=== PATIENT | male | born 1960 | race Caucasian/White ===

== ENCOUNTER 2024-05-31 11:06 | Inpatient (IN) | payer MEDICARE, MEDICAID, SELFPAY ==
[2024-05-31] VITALS (13 sets, daily range): BP systolic 108–140; BP diastolic 62–85; PULSE 74–155; RESP 18–24; TEMP 36.6–36.9; O2SAT 87–96; BMI 33.5; BMI 34.2
--- NOTE | 2024-05-31 11:43 | XR_ITS ---
PROCEDURE INFORMATION: Exam: XR Chest Exam date and time: 05/31/2024 12:00 PM Age: 64 years old Clinical indication: Cough and shortness of breath; Additional info: SOA, cough TECHNIQUE: Imaging protocol: Radiologic exam of the chest. Views: 1 view. COMPARISON: CT ANGIO CHEST 09/06/2019 4:46 PM FINDINGS: Lungs: Hazy opacity in right lower lobe suspicious for developing pneumonia. Upper lobe emphysema. Pleural spaces: Small right pleural effusion Heart/Mediastinum: Unremarkable. No cardiomegaly. Bones/joints: Unremarkable. IMPRESSION: Hazy opacity in right lower lobe suspicious for developing pneumonia.
[2024-05-31 11:48] LABS: VBG Base Excess 4.9 mmol/L (-2.4-2.3); VBG HCO3 30.5 mmol/L (23-30); VBG Oxygen Saturation 70.9 % (50-70); VBG PCO2 57.1 mmol/L (35-51); VBG PH 7.35 mmol/L (7.31-7.41); VBG PO2 37.4 mmol/L (28-40); VBG Total CO2 32.3 mmol/L (23-27)
[2024-05-31 11:51] LABS: Albumin Level 3.8 g/dl (3.5-5.0); Basophils # 0.1 K/mm3 (0-0.2); Basophils % 0.5 % (0.1-2.0); Chloride 103 mmol/L (98-107); Eosinophils # 0.1 K/mm3 (0.0-0.4); Eosinophils % 0.5 % (0.1-12.0); Hematocrit 54.8 % (42.0-52.0); Hemoglobin 17.2 g/dL (14.1-18.0); Lymphocytes # 1.3 K/mm3 (0.7-4.5); Lymphocytes % 10.9 % (10-50); Mean Corpuscular HGB Conc 31.5 g/dL (31.8-35.4); Mean Corpuscular Hemoglobin 28.4 pg (27.0-31.2); Mean Corpuscular Volume 90.4 fl (80-94); Mean Platelet Volume 8.5 fl (7.4-10.4); Monocytes # 0.7 K/mm3 (0.1-1.0); Platelet Count 265 K/mm3 (142-424); Red Blood Count 6.06 M/mm3 (4.60-6.20); Sodium 141 mmol/L (136-145); White Blood Count 12.2 K/mm3 (4.8-10.8)
--- NOTE | 2024-05-31 11:51 | ECG_ITS ---
APPROVED REPORT Exam: Resting ECG HR:131 bpm ECG Measurements Heart Rate 131 AXES QRSd 150 QRS 152 QT 332 T -4 QTc 409 Conclusion ATRIAL FIBRILLATION WITH RAPID VENTRICULAR RESPONSE RIGHT AXIS DEVIATION [QRS AXIS > 100] RIGHT BUNDLE BRANCH BLOCK [120+ ms QRS DURATION, UPRIGHT V1, 40+ ms S IN I/aVL/V4/V5/V6] ABNORMAL ECG UNCONFIRMED REPORT Electronically signed by : Arron Lao MD 06/01/2024 08:36:16
[2024-05-31 11:52] LABS: Potassium 4.3 mmoL/L (3.5-5.1)
[2024-05-31 11:53] LABS: Lactate Venous 2.3 mmol/L (0.4-2.0)
[2024-05-31 11:54] LABS: Alanine Aminotransferase 101 U/L (12-78); Albumin/Globulin Ratio 1.2 (1.1-1.8); Alkaline Phosphatase 70 U/L (38-126); Anion Gap 10.3 mEq/L (5-15); Aspartate Amino Transferase 88 U/L (17-59); Bilirubin,Total 1.2 mg/dl (0.2-1.3); Blood Urea Nitrogen 29 mg/dl (9-20); Carbon Dioxide 32 mmol/L (22.0-30.0); Creatinine Clearance Estimated 99 mL/min (50-200); Estimated Glomerular Filt Rate 67 ml/min (>60); GFR (African American) 81 ML/MIN (>60); Globulin 3.2 g/dL (1.3-3.2)
[2024-05-31 11:55] LABS: Calcium 9.3 mg/dl (8.4-10.2); Glucose 113 mg/dl (74-100)
[2024-05-31] MEDS: METHYLPREDNISOLONE SOD SUCC 125MG VIAL 125 MG IV (12:03)
[2024-05-31 12:04] LABS: NT Pro Brain Natriuretic Pep. 15200 pg/mL (0-125)
[2024-05-31] MEDS: IPRATROPIUM/ALBUTEROL 3 ML NEB 9 ML IH (12:04)
--- NOTE | 2024-05-31 12:05 | PC.NURSE ---
XR AT BEDSIDE
--- NOTE | 2024-05-31 12:05 | PC.NURSE ---
Rad in room for portable x-ray
[2024-05-31 12:07] LABS: Troponin I 0.07 ng/ml (0.00-0.034)
[2024-05-31 12:26] LABS: Activated Partial Thrombo Time 25.9 seconds (22.8-30.6); INR 1.37 (0.9-1.1); Prothrombin Time 14.9 seconds (10.1-12.5)
--- NOTE | 2024-05-31 12:27 | ED_ITS ---
Discharge Plan Disposition Patient Disposition: Admitted Referrals Follow up/Referrals: Vita Grissom MD [Primary Care Provider] - See instructions Clinical Impressions Clinical Impression: COPD exacerbation, New onset of congestive heart failure, Atrial fibrillation, new onset, Acute hypoxemic respiratory failure Print Language Print Language: [place]ijani Discharge ED Provider: Aftab Jyoner HPI General Chief Complaint: Shortness of Breath/Dyspnea Stated Complaint: SOB x 1 week, weakness Time Seen by Provider: 05/31/24 11:15 Mode of Arrival: Wheelchair Source of Information: Patient Limitations: No Limitations Description of Symptoms (Recalled from ER Triage Doc. by RN): Patient reports increased shortness of breath over the past 3-4 days. History of Present Illness HPI narrative: Please note that above description of symptoms, in this electronic medical record under categorization of recalled from ER triage doctor by RN are reflective of an initial nursing assessment, however, is not reflective of my full history and physical exam that was personally taken and clarified. Consequentially, this preceding description of symptoms, which may include the patient's categorized chief complaint in the EMR, do not reflect my personal clinical impression, and the ultimate description of history of present illness and patient stated complaints should be deferred to this section of the note. Unless stated otherwise or congruent with this section of the note, additional signs, symptoms, or incongruence should be interpreted as inaccurate with my clinical impression. Related Data Allergies Allergy/AdvReac Type Severity Reaction Status Date / Time No Known Allergies Allergy Unverified 05/31/24 12:35 [facility] Disclaimer: The information contained in this section may have been updated after the patient was seen, as this information can be updated by other users. Social History Smoking Status: Current every day smoker alcohol intake: never current occupational status: unemployed Travel in the last 8 weeks: None Other Medical History Have you received the Flu Vaccine for this season: No Have you received the Pneumonia Vaccine: No ROS Obtained: Yes All systems reviewed & no additional complaints except as documented Physical Exam General General appearance: alert, in no apparent distress and other (Chronically ill) Neck Neck exam: Present trachea midline Chest Chest inspection: Present normal inspection and symmetric chest wall rise Respiratory Respiratory exam: Present wheezes, prolonged expiratory phase and other; Absent respiratory distress, stridor or accessory muscle use Cardiovascular Cardiovascular exam: Present regular rate, normal rhythm and other (Pulses equal and symmetric in upper and lower extremities) Extremities Exam Extremities exam: Absent edema Neurological Exam Neurological exam: Present alert, oriented X3 and CN II-XII intact Skin Skin exam: Present warm and dry; Absent cyanosis, diaphoresis or pallor HEART Score HEART Score HEART Score assessment performed?: Yes History (anamnesis): Slightly suspicious ECG: Non-specific disturbance Age: >65 years Risk factors: 1-2 risk factors Troponin: 1-3x normal limit HEART Score: 5 Critical Care Critical Care Time Critical Care Time: Yes (Pulm) Attestation: On 05/31/24, the high probability of a clinically significant, sudden or life threatening deterioration of the following system(s) required my full and direct attention, intervention and personal management. The time I documented below is in addition to time spent performing reported procedures but includes the following listed in this critical care notation. Total Time Total Critical Care Time: 35 Medical Decision Making Medical Records Medical records reviewed: Yes I reviewed the patient's medical records. Dat Inquiry Pt receiving controlled substance: No Dat was queried for this patient: No Vital Signs Vital Signs: 05/31/24 11:07 Temperature 98.2 F Temperature Source Oral Pulse Rate [Radial] 74 Respiratory Rate 22 Blood Pressure [Right Arm] 116/81 Blood Pressure Mean [Right Arm] 92 Blood Pressure Source [Right Arm] Automatic Cuff Blood Pressure Position [Right Arm] Sitting 02 Sat by Pulse Oximetry 87 L Oxygen Delivery Method Room Air Lab Data Labs: Lab Results 05/31/24 11:27: WBC 12.2 H, RBC 6.06, Hgb 17.2, Hct 54.8 H, MCV 90.4, MCH 28.4, MCHC 31.5 L, RDW 15.0, Plt Count 265, MPV 8.5, Neut % (Auto) 82.0 H, Lymph % (Auto) 10.9, [place] % (Auto) 6.0, Eos % (Auto) 0.5, Baso % (Auto) 0.5, Neut # (Auto) 10.0 H, Lymph # (Auto) 1.3, [place] # (Auto) 0.7, Eos # (Auto) 0.1, Baso # (Auto) 0.1, PT 14.9 H, INR 1.37 H, APTT 25.9, Sodium 141, Potassium 4.3, Chloride 103, Carbon Dioxide 32 H, Anion Gap 10.3, BUN 29 H, Creatinine 1.10, Estimated Creat Clear 99, Estimated GFR 67, Est GFR ( Amer) 81, Glucose 113 H, Calcium 9.3, Total Bilirubin 1.2, AST 88 H, ALT 101 H, Alkaline Phosphatase 70, Troponin I 0.07 H, NT-Pro-B Natriuret Pep 79592 H, Total Protein 7.0, Albumin 3.8, Globulin 3.2, Albumin/Globulin Ratio 1.2, Procalcitonin 0.121 05/31/24 11:44: VBG pH 7.35, VBG pCO2 57.1 H, VBG pO2 37.4, VBG HCO3 30.5 H, VBG Total CO2 32.3 H, VBG O2 Saturation 70.9 H, VBG Base Excess 4.9 H, VBG Lactic Acid 2.3 H 05/31/24 11:27 05/31/24 11:27 Response Orders (Tests/Meds): ED MEDICATIONS Generic Name Dose Route Start Last Admin Trade Name Freq PRN Reason Stop Dose Admin Acetaminophen 650 mg 05/31/24 13:03 Acetaminophen 325mg Tab PO 06/30/24 13:02 Q4HP PRN Fever or Mild Pain (1-3) Enoxaparin Sodium 105 mg 05/31/24 12:45 05/31/24 12:41 Enoxaparin 120mg/0.8ml Syringe SUBCUT 06/30/24 12:44 105 mg Q12H LUDIVINA Administration Enoxaparin Sodium 40 mg 06/01/24 09:00 Enoxaparin 40mg/0.4ml Syringe SUBCUT 07/01/24 08:59 DAILY LUDIVINA Ondansetron HCl 4 mg 05/31/24 13:03 Ondansetron 4mg/2ml Vial IV 06/30/24 13:02 Q8HP PRN Nausea Discontinued Medications Generic Name Dose Route Start Last Admin Trade Name Freq PRN Reason Stop Dose Admin Albuterol/Ipratropium 9 ml 05/31/24 11:43 05/31/24 12:04 Ipratropium/Albuterol 3 Ml Neb IH 05/31/24 11:44 9 ml ONCE ONE Administration Furosemide 80 mg 05/31/24 12:31 05/31/24 12:40 Furosemide 40mg/4ml Vial IV 05/31/24 12:32 80 mg ONCE ONE Administration Ceftriaxone Sodium 2 gm/ 100 mls @ 200 mls/hr 05/31/24 12:32 05/31/24 12:40 Sodium Chloride IV 05/31/24 13:01 200 mls/hr ONCE ONE Administration Methylprednisolone Sodium Succinate 125 mg 05/31/24 11:43 05/31/24 12:03 Methylprednisolone Sod Succ 125mg Vial IV 05/31/24 11:44 125 mg ONCE ONE Administration Metoprolol Tartrate 5 mg 05/31/24 12:57 05/31/24 13:11 Metoprolol Tartrate 5mg/5ml Vial IV 05/31/24 12:58 5 mg ONCE ONE Administration ORDERS Category Date Time Status Cardiology Consult [Consult to Cardiology] [CONS] Cons 05/31/24 13:09 Active Routine XR chest portable Stat Exams 05/31/24 11:43 Taken Complete Blood Count Auto Diff [facility] Lab 06/01/24 06:00 Ordered Complete Blood Count Auto Diff [facility] Lab 06/02/24 06:00 Ordered Complete Blood Count Auto Diff [facility] Lab 06/03/24 06:00 Ordered Complete Blood Count Auto Diff [facility] Lab 06/04/24 06:00 Ordered Complete Blood Count Auto Diff [facility] Lab 06/05/24 06:00 Ordered Complete Blood Count Auto Diff Stat Lab 05/31/24 11:27 Completed Comprehensive Metabolic Panel [facility] Lab 06/01/24 06:00 Ordered Comprehensive Metabolic Panel [facility] Lab 06/02/24 06:00 Ordered Comprehensive Metabolic Panel [facility] Lab 06/03/24 06:00 Ordered Comprehensive Metabolic Panel [facility] Lab 06/04/24 06:00 Ordered Comprehensive Metabolic Panel [facility] Lab 06/05/24 06:00 Ordered Comprehensive Metabolic Panel Stat Lab 05/31/24 11:27 Completed HIV (1&2) Antibody Rapid Stat Lab 05/31/24 11:27 Received Hemoglobin A1C [facility] Lab 06/01/24 06:00 Ordered Hep C Ab with Reflex to RNA Stat Lab 05/31/24 11:27 Received Magnesium [facility] Lab 06/01/24 06:00 Ordered Magnesium [facility] Lab 06/02/24 06:00 Ordered Magnesium [facility] Lab 06/03/24 06:00 Ordered Magnesium [facility] Lab 06/04/24 06:00 Ordered Magnesium [facility]AB Lab 06/05/24 06:00 Ordered NT Pro Brain Natriuretic Pep. Stat Lab 11/04/24 11:27 Completed PT INR [Prothrombin Time INR] Stat Lab 05/31/24 11:27 Completed PTT [Activated Partial Thrombo Time] Stat Lab 05/31/24 11:27 Completed Procalcitonin Stat Lab 05/31/24 11:27 Completed Troponin I Q3H Lab 05/31/24 14:45 Ordered Troponin I Q3H Lab 05/31/24 17:45 Ordered Troponin I Stat Lab 05/31/24 11:27 Completed Blood Culture Stat Micro 05/31/24 12:36 Received Venous Blood Gas Stat RT 05/31/24 11:44 Completed MDM Narrative Medical Decision Narrative: 64-year-old male history of COPD still smoking not on home oxygen presenting with shortness of breath and cough. Patient states that this has been getting worse over the past few days. Cough productive of yellow sputum, this is not normal for him. No fevers, chills, nausea, vomiting, or any other concerning symptoms. Not positional, not necessarily exertional, per patient. Came in out of concern for pneumonia. History was obtained via conversation with patient. On arrival, patient hemodynamically stable, alert, oriented x4, appropriate, GCS 15, moving all extremities spontaneously, pupils equal and reactive to light. Full physical exam performed and significant for chronically ill-appearing male in no acute distress. He is mid 80s on room air. 2 L nasal cannula up to 90 to 92%. Diffuse bilateral wheezing, worse on the left with prolonged expiratory phase. Cardiac exam within normal limits. No lower extremity edema. Abdomen soft, nontender, nondistended. Ambulatory, neurologically intact. Differential includes COPD, acute hypoxemic respiratory failure, acute hypercapnic respiratory failure, pneumonia, bronchitis, ACS, NH, CHF, among others. Patient was given DuoNebs and Solu-Medrol for symptomatic management and correction of underlying abnormalities. Patient placed on continuous cardiac monitoring and continuous pulse ox with initial blood pressure 116/81, heart rate MD for, saturation 87% on room air. Independent interpretation of EKG shows A-fib with RVR 131 bpm with no obvious acute ischemic change. QRS 150, QTc 409. Right bundle branch block morphology. Workup independently interpreted and significant for leukocytosis with neutrophilia. INR mildly elevated 1.4. VBG with normal pH 7.35, CO2 high at 57, bicarb high at 30.5 concerning for chronic respiratory acidosis with metabolic compensation. Lactate mildly elevated 2.3. Nonactionable chemistry. Initial BNP 15,000, troponin 0.07. On independent interpretation of imaging, cardiomegaly, bilateral pleural effusions and scarring, no obvious consolidation. See radiology read for full review of final results. Patient given therapeutic Lovenox, 80 mg IV Lasix. Score 5, [id number] score 3. On reevaluation, feeling little better, still in A-fib with RVR. Interactive discussion had with hospitalist and 5 mg Lopressor to be administered for A-fib with RVR in the setting of CHF. Given patient presentation, workup, history, this most likely represents shortness of breath in the setting of COPD exacerbation, new onset CHF and A-fib with RVR. Because patient high risk for clinical decompensation, deemed appropriate for inpatient admission. Results were relayed to patient who voiced understanding and patient was agreeable to inpatient admission and management. Patient was admitted to the hospital for further definitive management. [employer] disclaimer Much of this encounter note is an electronic physical education aide spoken language to printed text. Electronic physical education aide of the spoken language may permit errors. Although I have reviewed the note, some errors may still exist.
[2024-05-31 12:37] LABS: Procalcitonin 0.121 ng/mL (0.0-2.0)
[2024-05-31] MEDS: FUROSEMIDE 40MG/4ML VIAL 80 MG IV (12:40)
[2024-05-31] MEDS: CEFTRIAXONE SODIUM 2 GM in 0.9 % SODIUM CHLORIDE 100 ML IV (12:40)
[2024-05-31] MEDS: ENOXAPARIN 120MG/0.8ML SYRINGE 105 MG SUBCUT (12:41)
--- NOTE | 2024-05-31 12:58 | PC.NURSE ---
DR SAENZ SPEAKING WITH HOSPITALIST
[2024-05-31] MEDS: METOPROLOL TARTRATE 5MG/5ML VIAL 5 MG IV (13:11)
--- NOTE | 2024-05-31 13:13 | PC.NURSE ---
SEISMOGRAPH HELPER NOTIFIED OF ADMISSION
--- NOTE | 2024-05-31 13:38 | PC.NURSE ---
Report called to JACOB Townsend on Med Surg.
--- NOTE | 2024-05-31 13:46 | CA_ITS ---
APPROVED REPORT EXAM: Comprehensive 2D, Doppler, and color-flow Echocardiogram Hospital Wellness Coordinator: Radha Camargo RVT Ht: 5 ft 10 in Wt: 234lbs BSA: 2.23 BP: 116/81 mmHg Indications: A-FIB,CHF,SOA,SMOKER,COPD Echo Enhancing Agent Indication: Endocardial border delineation Agent(s) / Amount(s) Used: Definity 2 cc 2D Dimensions IVSd 1.12 cm M: 0.6-1.2 LVEF (Visual) 31.30 % PWd 1.37 cm M: 0.6 - 1.2 LA Volume 65.20 mL LVDd 4.75 cm M: 4.2 - 5.9 LA Volume Index 29.24 mL/m2 (M/F) 16-34 LVDs 4.05 cm M: 2.5 - 4.0 EF AP4 35.80 % Left Atrium 4.79 cm M: 3.0 - 4.0 GL Strain -9.7 % RVID Base (AP4) 3.44 cm (M/F) 2.5-4.1 LVOT 2.91 cm (M/F) 1.5-2.5 M-Mode Dimensions LVDd 4.75 cm (3.5-5.7) Ao Diam 3.31 cm (2.0-3.7) LVDs 4.05 cm (3.5-5.7) IVSd 1.12 cm (0.6-1.1) PWd 1.37 cm (0.6-1.1) FS 14.70% LV Diastology MED E' 5.9 (>= 7 cm/sec) LAT E' 11.8 (>= 10 cm/sec) Aortic Valve LVOT Max 82.0 (70-110 cm/s) KATIA Index 1.30 cm2/m2 LVOT VTI 14.57 cm AoV Peak Hugh. 199.0 (50-130 cm/s) AO Peak GR. 28.00 mmHg AO Mean GR. 9.50 (<5 mmHg) AO VTI 33.6 (18-25 cm) KATIA (VTI) 2.89 (2.5-4.5 cm2) Tricuspid Valve TR P. Velocity 269.00 cm/s RAP Estimate 10.00 mmHg RVSP 38.90 mmHg Left Ventricle The left ventricle is normal size. Left ventricular systolic function is severely decreased. There is increased LV wall thickness. There is akinesis of the anterior, lateral, and anterolateral LV loredo. Diastolic function is indeterminate. LVEF is 25%. Right Ventricle Right ventricle is mild to moderately dilated. Right ventricle is severely hypokinetic. Atria Left atrium is mildly dilated. Right atrium is mildly dilated. There is no Doppler evidence of interatrial shunt. Aortic Valve The aortic valve is mildly thickened. There is no hemodynamically significant aortic stenosis. Mild aortic regurgitation. Mitral Valve The mitral valve leaflets are mildly thickened. Mild mitral regurgitation. No evidence of mitral valve stenosis. Tricuspid Valve The tricuspid valve leaflets are thin and pliable. Trace tricuspid regurgitation. There is insufficient TR jet to estimate RVSP. Pulmonic Valve The pulmonary valve is normal in structure. Trace pulmonic regurgitation. Great Vessels The aortic root is normal in size. The ascending aorta is not well-visualized. IVC is normal in size and collapses >50% with inspiration. Pericardium There is no pericardial effusion. Other Information Study Quality: Technically Difficult Conclusion Technically difficult study due to poor acoustic windows. Severely reduced LV systolic function (LVEF 25%). Akinesis of the anterior, lateral, and anterolateral LV loredo. Mild to moderate RV dilation with severe reduction in RV function. Biatrial dilation. Mild AI, mild MR. Electronically signed by : Maryjo Armstrong MD 06/02/2024 11:10:24
--- NOTE | 2024-05-31 13:59 | PC.NURSE ---
arrived by w/c from ED
--- NOTE | 2024-05-31 14:20 | EXP.CARD.CON ---
History of Present Illness History of Present Illness Consult date: 05/31/24 Requesting physician: Librado Grewal Consult reason: atrial fibrillation Chief complaint: SOA, cough Additional Medical History:: 1. Tobacco use since 4th grade 2. Centrilobular and paraseptal emphysema with scattered bullous changes, chest CTA, 2019 History of present illness: 64-year-old male history of COPD still smoking not on home oxygen presenting with shortness of breath and cough. Patient states that this has been getting worse over the past few days. Cough productive of yellow sputum, this is not normal for him. No fevers, chills, nausea, vomiting, or any other concerning symptoms. Not positional, not necessarily exertional, per patient. Came in out of concern for pneumonia. History was obtained via conversation with patient. On arrival, patient hemodynamically stable, alert, oriented x4, appropriate, GCS 15, moving all extremities spontaneously, pupils equal and reactive to light. Full physical exam performed and significant for chronically ill-appearing male in no acute distress. He is mid 80s on room air. 2 L nasal cannula up to 90 to 92%. Diffuse bilateral wheezing, worse on the left with prolonged expiratory phase. Cardiac exam within normal limits. No lower extremity edema. Abdomen soft, nontender, nondistended. Ambulatory, neurologically intact. Differential includes COPD, acute hypoxemic respiratory failure, acute hypercapnic respiratory failure, pneumonia, bronchitis, ACS, ID, CHF, among others. Patient was given DuoNebs and Solu-Medrol for symptomatic management and correction of underlying abnormalities. Patient placed on continuous cardiac monitoring and continuous pulse ox with initial blood pressure 116/81, heart rate MD for, saturation 87% on room air. Independent interpretation of EKG shows A-fib with RVR 131 bpm with no obvious acute ischemic change. QRS 150, QTc 409. Right bundle branch block morphology. Workup independently interpreted and significant for leukocytosis with neutrophilia. INR mildly elevated 1.4. VBG with normal pH 7.35, CO2 high at 57, bicarb high at 30.5 concerning for chronic respiratory acidosis with metabolic compensation. Lactate mildly elevated 2.3. Nonactionable chemistry. Initial BNP 15,000, troponin 0.07. On independent interpretation of imaging, cardiomegaly, bilateral pleural effusions and scarring, no obvious consolidation. See radiology read for full review of final results. Patient given therapeutic Lovenox, 80 mg IV Lasix. Score 5, [id number] score 3. On reevaluation, feeling little better, still in A-fib with RVR. Interactive discussion had with hospitalist and 5 mg Lopressor to be administered for A-fib with RVR in the setting of CHF. Given patient presentation, workup, history, this most likely represents shortness of breath in the setting of COPD exacerbation, new onset CHF and A-fib with RVR. Because patient high risk for clinical decompensation, deemed appropriate for inpatient admission. Results were relayed to patient who voiced understanding and patient was agreeable to inpatient admission and management. Patient was admitted to the hospital for further definitive management. The above per Dr. Joyner Cardiology consulted for help with A. fib management. Pt denies any prior history of cardiac issues. Long time smoker with emphysema reports increased SOA, productive cough of green phlegm and increasing LE edema over the last few days. Chest x-ray in the ER shows hazy opacity in the right lower lobe suspicious for developing pneumonia. Upper lobe emphysema noted. EKG is a. fib with rate of 131 bpm with no acute ST segment changes. Initial troponin is elevated at 0.07 BNP 29093 with mild elevated LFT's He received IV lasix and metoprolol in ER without much improvement in urine output or HR. [facility] Disclaimer: The information contained in this section may have been updated after the patient was seen, as this information can be updated by other users. Medical History (Updated 06/01/24 @ 08:01 by Windy Dennis APRN) Atrial fib/flutter, transient CHF (congestive heart failure) COPD (chronic obstructive pulmonary disease) Family History (Updated 05/31/24 @ 14:39 by Roxy Martins RN) Other No significant family history Social History (Updated 05/31/24 @ 14:40 by Roxy Martins RN) Smoking Status: Current every day smoker alcohol intake: never current occupational status: unemployed Travel in the last 8 weeks: None Review of Systems Review of Systems Review of systems:: pertinent systems reviewed and negative unless documented below *Cardiovascular Cardiovascular: Reports dyspnea, Reports dyspnea on exertion, Reports leg edema and Reports rapid heart rate *Respiratory Respiratory: Reports cough, Reports dyspnea and Reports dyspnea on exertion Exam Data for Last 24 hours Vital signs and Labs for Last 24 Hours: Temp Pulse Resp BP Pulse Ox O2 Del Method O2 Flow Rate 97.9 F 145 H 18 124/72 87 L Nasal Cannula 2 05/31/24 13:37 05/31/24 13:37 05/31/24 13:37 05/31/24 13:37 05/31/24 11:07 05/31/24 13:37 05/31/24 13:37 Laboratory Results - last 24 hr 05/31/24 11:27: WBC 12.2 H, RBC 6.06, Hgb 17.2, Hct 54.8 H, MCV 90.4, MCH 28.4, MCHC 31.5 L, RDW 15.0, Plt Count 265, MPV 8.5, Neut % (Auto) 82.0 H, Lymph % (Auto) 10.9, [place] % (Auto) 6.0, Eos % (Auto) 0.5, Baso % (Auto) 0.5, Neut # (Auto) 10.0 H, Lymph # (Auto) 1.3, [place] # (Auto) 0.7, Eos # (Auto) 0.1, Baso # (Auto) 0.1, PT 14.9 H, INR 1.37 H, APTT 25.9, Sodium 141, Potassium 4.3, Chloride 103, Carbon Dioxide 32 H, Anion Gap 10.3, BUN 29 H, Creatinine 1.10, Estimated Creat Clear 99, Estimated GFR 67, Est GFR ( Amer) 81, Glucose 113 H, Calcium 9.3, Total Bilirubin 1.2, AST 88 H, ALT 101 H, Alkaline Phosphatase 70, Troponin I 0.07 H, NT-Pro-B Natriuret Pep 77292 H, Total Protein 7.0, Albumin 3.8, Globulin 3.2, Albumin/Globulin Ratio 1.2, Procalcitonin 0.121 05/31/24 11:44: VBG pH 7.35, VBG pCO2 57.1 H, VBG pO2 37.4, VBG HCO3 30.5 H, VBG Total CO2 32.3 H, VBG O2 Saturation 70.9 H, VBG Base Excess 4.9 H, VBG Lactic Acid 2.3 H I & O for Last 24 hours: Intake & Output 05/29/24 05/30/24 05/31/24 06/01/24 11:59 10:59 11:59 11:59 Weight 234 lb Constitutional Constitutional: mild distress *Routine Cardiovascular Exam Cardiovascular: Present tachycardia and irregularly irregular *Routine Extremities Exam Extremities: Present edema *Routine Neurological Exam Neurological: Present alert, oriented X3 and CN II-XII intact Meds Home Medications and Allergies Home Medications ?Medication ?Instructions ?Recorded ?Confirmed ?Type aspirin 325 mg tablet,delayed 325 mg PO DAILY 05/31/24 05/31/24 History release New Prescriptions to Start Prescriptions: Allergies Allergy/AdvReac Type Severity Reaction Status Date / Time No Known Allergies Allergy Unverified 05/31/24 12:35 Assessment and Plan *Assessment and plan (1) Atrial fibrillation with RVR: Status: Acute Category: Medical Code(s): I48.91 - Unspecified atrial fibrillation (2) Acute hypoxemic respiratory failure: Status: Acute Category: Medical Code(s): J96.01 - Acute respiratory failure with hypoxia (3) New onset of congestive heart failure: Status: Acute Category: Medical Code(s): I50.9 - Heart failure, unspecified (4) COPD exacerbation: Status: Acute Category: Medical Code(s): J44.1 - Chronic obstructive pulmonary disease with (acute) exacerbation Plan 1. A. fib with RVR, new diagnosis -CHADS-VASC score of 3 (CHF, age, vascular disease) -started on lovenox -one dose of IV metoprolol in ER without significant response -start IV diltiazem for rate control -Echo once HR <100 bpm -venous doppler of LE's 2. CHF with BNP 54627 and transaminitis -check echo to assess LVEF -IV lasix 3. Emphysema with continued tobacco use -RLL pneumonia on CXR, starting antibiotics -Hypoxia, improved on nasal oxygen 4. Elevated INR 1.37 without anticoagulation Further recommendations to follow pending echo results and response to diltiazem
--- NOTE | 2024-05-31 14:39 | HMH.PHAINT1 ---
Pharmacy Intervention Comments: MEDICATION RECONCILIATION COMPLETED ON PATIENT USING EXTERNAL FILL HISTORY FROM PHARMACY AND PATIENT INTERVIEW. -YARA BRADY, YOELD
[2024-05-31] MEDS: dilTIAZem 25MG/5ML VIAL 15 MG IV (14:43)
[2024-05-31] MEDS: dilTIAZem HCL 100 MG in 0.9 % SODIUM CHLORIDE 100 ML IV (14:54)
[2024-05-31] MEDS: AZITHROMYCIN 500 MG in 0.9 % SODIUM CHLORIDE 250 ML 250 MG IV (15:27)
[2024-05-31 15:32] LABS: HIV (1&2) Antibody Rapid NONREACTIVE (NONREACTIVE)
[2024-05-31 15:38] LABS: Troponin I 0.06 ng/ml (0.00-0.034)
[2024-05-31 15:53] LABS: Reflex Lactic Add Lactic Reflex
[2024-05-31] MEDS: DEFINITY US ECHO CONTRAST 2ML INJ 2 MG IV (15:59)
[2024-05-31 16:21] LABS: Lactic Acid Follow Up (RFLX 1) 1.1 mmol/L (0.7-2.1)
--- NOTE | 2024-05-31 16:25 | EXP.HP ---
History of Present Illness *Admission Date: 05/31/24 *Reason for visit:: Shortness of breath, A-fib RVR *History of present illness: Ky Hodge is a 64-year-old male with a medical history significant for tobacco use disorder, COPD presents with progressive shortness of breath over the last several days. He states he has had this on and off for the past years, but has been worse recently. Denies fever/chills, productive cough (baseline dry cough), nausea/vomiting, abdominal pain, constipation/diarrhea. No recent changes in medications. He states he does not use any inhalers for his COPD. He has been smoking apparently since grade 4. On arrival, patient was saturating at 87 on room air. He had diminished air movements and was given 3 DuoNebs and IV Lasix 60 mg, and developed A-fib RVR with heart rate up to 140s. Administered IV Lopressor 5 mg without improvement. Workup in the ED significant for WBC 12.2, VBG with compensated chronic CO2 retention, troponin 0.06, proBNP 15,200. EKG showed A-fib RVR. CXR suggestive of right lower lobe pneumonia. Case discussed with ED provider and decision was made to admit patient for acute hypoxic respiratory failure 2/2 COPD exacerbation, new onset heart failure, and A-fib RVR. [facility] Disclaimer: The information contained in this section may have been updated after the patient was seen, as this information can be updated by other users. Medical History (Updated 05/31/24 @ 14:39 by Roxy Martins, JACOB) Atrial fib/flutter, transient CHF (congestive heart failure) COPD (chronic obstructive pulmonary disease) Family History (Updated 05/31/24 @ 14:39 by Roxy Martins, JACOB) Other No significant family history Social History (Updated 05/31/24 @ 14:40 by Roxy Martins, JACOB) Smoking Status: Current every day smoker alcohol intake: never current occupational status: unemployed Travel in the last 8 weeks: None Other Medical History Have you received the Flu Vaccine for this season: No Have you received the Pneumonia Vaccine: No Meds Home Medications and Allergies Home Medications ?Medication ?Instructions ?Recorded ?Confirmed ?Type aspirin 325 mg tablet,delayed 325 mg PO DAILY 05/31/24 05/31/24 History release New Prescriptions to Start Prescriptions: Allergies Allergy/AdvReac Type Severity Reaction Status Date / Time No Known Allergies Allergy Unverified 05/31/24 12:35 Exam Data for Last 24 hours Vital signs and Labs for Last 24 Hours: Temp Pulse Resp BP Pulse Ox O2 Del Method O2 Flow Rate 97.9 F 100 H 24 123/71 91 L Nasal Cannula 4 05/31/24 13:37 05/31/24 16:00 05/31/24 16:00 05/31/24 16:00 05/31/24 16:00 05/31/24 16:00 05/31/24 16:00 Laboratory Results - last 24 hr 05/31/24 11:27: WBC 12.2 H, RBC 6.06, Hgb 17.2, Hct 54.8 H, MCV 90.4, MCH 28.4, MCHC 31.5 L, RDW 15.0, Plt Count 265, MPV 8.5, Neut % (Auto) 82.0 H, Lymph % (Auto) 10.9, [place] % (Auto) 6.0, Eos % (Auto) 0.5, Baso % (Auto) 0.5, Neut # (Auto) 10.0 H, Lymph # (Auto) 1.3, [place] # (Auto) 0.7, Eos # (Auto) 0.1, Baso # (Auto) 0.1, PT 14.9 H, INR 1.37 H, APTT 25.9, Sodium 141, Potassium 4.3, Chloride 103, Carbon Dioxide 32 H, Anion Gap 10.3, BUN 29 H, Creatinine 1.10, Estimated Creat Clear 99, Estimated GFR 67, Est GFR ( Amer) 81, Glucose 113 H, Calcium 9.3, Total Bilirubin 1.2, AST 88 H, ALT 101 H, Alkaline Phosphatase 70, Troponin I 0.07 H, NT-Pro-B Natriuret Pep 95668 H, Total Protein 7.0, Albumin 3.8, Globulin 3.2, Albumin/Globulin Ratio 1.2, Procalcitonin 0.121, HIV 1&2 Antibody Rapid Nonreactive 05/31/24 11:44: VBG pH 7.35, VBG pCO2 57.1 H, VBG pO2 37.4, VBG HCO3 30.5 H, VBG Total CO2 32.3 H, VBG O2 Saturation 70.9 H, VBG Base Excess 4.9 H, VBG Lactic Acid 2.3 H 05/31/24 15:08: Troponin I 0.06 H I & O for Last 24 hours: Intake & Output 05/28/24 05/29/24 05/30/24 05/31/24 23:59 23:59 22:59 23:59 Intake Total 105.1 / 105.1 Balance 105.1 / 105.1 Weight 108.097 kg Constitutional Constitutional: no acute distress *Routine HEENT Exam Head: Present normocephalic Eye: Present EOMI and PERRL ENT: Present mucous membranes moist *Routine Neck Exam Neck: Present supple; Absent lymphadenopathy *Routine Respiratory Exam Respiratory: Present diminished air movement; Absent CTA bilaterally *Routine Cardiovascular Exam Cardiovascular: Present RRR *Routine Abdominal Exam Abdominal: Present soft and normoactive bowel sounds; Absent tenderness Comments: Protuberant abdomen. *Routine Rectal Exam Rectal:: deferred *Routine Genitalia Exam Genitalia:: deferred *Routine Extremities Exam Extremities: Absent cyanosis, clubbing or edema Comments: Bilateral lower extremity 1+ pitting edema. Bilateral severe onychomycosis. *Routine Skin Exam Skin: Present warm; Absent rash *Routine Neurological Exam Neurological: Present alert and oriented X3 Assessment and Plan *Assessment and plan (1) Atrial fibrillation with RVR: Status: Acute Category: Medical Code(s): I48.91 - Unspecified atrial fibrillation (2) Acute hypoxemic respiratory failure: Status: Acute Category: Medical Code(s): J96.01 - Acute respiratory failure with hypoxia (3) Atrial fibrillation, new onset: Status: Acute Category: Medical Code(s): I48.91 - Unspecified atrial fibrillation (4) New onset of congestive heart failure: Status: Acute Category: Medical Code(s): I50.9 - Heart failure, unspecified (5) COPD exacerbation: Status: Acute Category: Medical Code(s): J44.1 - Chronic obstructive pulmonary disease with (acute) exacerbation Plan Ky Hodge is a 64-year-old male with a medical history significant for tobacco use disorder, COPD presents with progressive shortness of breath over the last several days. He states he has had this on and off for the past years, but has been worse recently. Denies fever/chills, productive cough (baseline dry cough), nausea/vomiting, abdominal pain, constipation/diarrhea. No recent changes in medications. He states he does not use any inhalers for his COPD. He has been smoking apparently since grade 4. On arrival, patient was saturating at 87 on room air. He had diminished air movements and was given 3 DuoNebs and IV Lasix 60 mg, and developed A-fib RVR with heart rate up to 140s. Administered IV Lopressor 5 mg without improvement. Workup in the ED significant for WBC 12.2, VBG with compensated chronic CO2 retention, troponin 0.06, proBNP 15,200. EKG showed A-fib RVR. CXR suggestive of right lower lobe pneumonia. Case discussed with ED provider and decision was made to admit patient for acute hypoxic respiratory failure 2/2 COPD exacerbation, new onset heart failure, and A-fib RVR. #Acute hypoxic respiratory failure ? Combination of COPD exacerbation, community-acquired pneumonia. See separate problems. #A-fib with RVR #New onset systolic heart failure exacerbation #Pulmonary edema #Elevated troponins ? A-fib, HFrEF new diagnoses. In the setting of community-acquired pneumonia, new heart failure. ? Heart rate up to 140s on admission. Minimal response to IV Lopressor 5 mg in the ED. ? Given IV diltiazem 15 mg with improvement in heart rate to 90s. ? Cardiology consulted, recommended diltiazem drip. Preliminary ECHO does show reduced LVEF, but they recommended continuing diltiazem drip and continuing diuresis until tomorrow with plan to transition to beta-aditya. ? Therapeutic Lovenox 105 mg twice daily ordered. Cardiology advised to hold morning dose for potential LHC tomorrow. Last dose of Lovenox will be tonight, will need to be reordered or start DOAC after possible LHC tomorrow. ? Bilateral 2+ lower extremity pitting edema. ? IV Lasix 40 mg twice daily. Follow renal function, electrolytes. Electrolyte replacement protocol. ? Aspirin 81mg, atorvastatin 40mg started pending LHC results tomorrow. ? Follow-up final ECHO results. ? Follow-up serial troponins. ? N.p.o. at midnight for possible LHC tomorrow. #Acute COPD exacerbation #Community-acquired pneumonia #Sepsis ? WBC 12.2 with tachycardia, tachypnea. Sepsis bolus withheld given HFrEF volume overload. ? CXR suggestive of right lower lobe pneumonia. ? Ceftriaxone, azithromycin day 1/5. ? Atrovent, Xopenex scheduled and as needed. Will hold off on Pulmicort as COPD exacerbation is very mild, and hypoxia seems more likely from pulmonary edema. ? Prednisone 40 mg day 2/5 starting tomorrow. Solu-Medrol given in the ED. ? Pulmonology consulted to establish care for COPD. ? Follow-up sputum, blood cultures. #Severe onychomycosis ? Podiatry consult. Full code DVT prophylaxis: Therapeutic Lovenox Cardiac diet, n.p.o. after midnight.
[2024-05-31] MEDS: FUROSEMIDE 40MG/4ML VIAL 40 MG IV (17:33)
[2024-05-31] MEDS: ASPIRIN EC 81MG TABLET 81 MG PO (17:35)
[2024-05-31 19:19] LABS: Troponin I 0.06 ng/ml (0.00-0.034)
[2024-05-31] MEDS: LEVALBUTEROL 1.25MG/3ML NEB 1.25 MG IH (19:48)
[2024-05-31] MEDS: IPRATROPIUM BROMIDE 0.5 MG/2.5ML SOLUTION IH (19:48)
[2024-05-31] MEDS: ATORVASTATIN 40MG TABLET 40 MG PO (20:54)
[2024-06-01] VITALS (24 sets, daily range): BP systolic 93–129; BP diastolic 47–90; PULSE 80–129; RESP 18–24; TEMP 36.4–36.6; O2SAT 86–95; BMI 34.1
--- NOTE | 2024-06-01 03:20 | PC.NURSE ---
Pt called out for coffee at 0230, patient was given decaf coffee by this nurse, coffee taken @ 0300 after realizing patient is NPO.
[2024-06-01] MEDS: IPRATROPIUM BROMIDE 0.5 MG/2.5ML SOLUTION IH ×5 (06:18→23:09)
[2024-06-01] MEDS: LEVALBUTEROL 1.25MG/3ML NEB 1.25 MG IH ×5 (06:18→23:09)
--- NOTE | 2024-06-01 06:32 | PC.NURSE ---
Patient remains a/o able to voice needs to staff. Patient restless through the night up and down didn't really have any specific c/o just couldnt get comfortable. Diltiazem gtt was decreased then taken off at 0040 and has tolerated. Reviewed poc and d/c goals, pt v/u and has no new c/o
--- NOTE | 2024-06-01 06:45 | P.CONS_ITS ---
History of Present Illness *Admission Date: 05/31/24 *History of present illness: Ky Hodge is a 64-year-old male with a medical history significant for tobacco use disorder, COPD presents with progressive shortness of breath over the last several days. He states he has had this on and off for the past years, but has been worse recently. Denies fever/chills, productive cough (baseline dry cough), nausea/vomiting, abdominal pain, constipation/diarrhea. No recent changes in medications. He states he does not use any inhalers for his COPD. He has been smoking apparently since grade 4. On arrival, patient was saturating at 87 on room air. He had diminished air movements and was given 3 DuoNebs and IV Lasix 60 mg, and developed A-fib RVR with heart rate up to 140s. Administered IV Lopressor 5 mg without improvement. Workup in the ED significant for WBC 12.2, VBG with compensated chronic CO2 retention, troponin 0.06, proBNP 15,200. EKG showed A-fib RVR. CXR suggestive of right lower lobe pneumonia. Case discussed with ED provider and decision was made to admit patient for acute hypoxic respiratory failure 2/2 COPD exacerbation, new onset heart failure, and A-fib RVR. 06/01/24: Podiatry consult for a non-Diabetic new patient, admitted for acute hypoxic respiratory failure 2/2 COPD exacerbation, new onset heart failure, and A-fib RVR. Pateint was awake resting in his chair with oxygen mask in place. Alert and oriented x3, pleasant, no acute pain or discomfort this morning. Patient denies pain in his feet just stated his nails were long and ugly, he as verbally agreed for me to assess his feet and trim his nails. [facility] Disclaimer: The information contained in this section may have been updated after the patient was seen, as this information can be updated by other users. Medical History (Updated 06/01/24 @ 08:01 by Windy Dennis APRN) Atrial fib/flutter, transient CHF (congestive heart failure) COPD (chronic obstructive pulmonary disease) Family History (Updated 05/31/24 @ 14:39 by Roxy Martins RN) Other No significant family history Social History (Updated 05/31/24 @ 14:40 by Roxy Martins RN) Smoking Status: Current every day smoker alcohol intake: never current occupational status: unemployed Travel in the last 8 weeks: None Meds Home Medications and Allergies Home Medications ?Medication ?Instructions ?Recorded ?Confirmed ?Type aspirin 325 mg tablet,delayed 325 mg PO DAILY 05/31/24 05/31/24 History release New Prescriptions to Start Prescriptions: Allergies Allergy/AdvReac Type Severity Reaction Status Date / Time No Known Allergies Allergy Unverified 05/31/24 12:35 Exam (Inpt) Vital signs and Labs for Last 24 Hours: Temp Pulse Resp BP Pulse Ox O2 Del Method O2 Flow Rate 97.8 F 129 H 22 107/73 L 91 L Venturi Mask 12 06/01/24 00:29 06/01/24 06:17 06/01/24 06:00 06/01/24 06:00 06/01/24 06:17 06/01/24 06:17 06/01/24 06:17 FiO2 40 06/01/24 06:17 Laboratory Results - last 24 hr 05/31/24 11:27: WBC 12.2 H, RBC 6.06, Hgb 17.2, Hct 54.8 H, MCV 90.4, MCH 28.4, MCHC 31.5 L, RDW 15.0, Plt Count 265, MPV 8.5, Neut % (Auto) 82.0 H, Lymph % (Auto) 10.9, [place] % (Auto) 6.0, Eos % (Auto) 0.5, Baso % (Auto) 0.5, Neut # (Auto) 10.0 H, Lymph # (Auto) 1.3, [place] # (Auto) 0.7, Eos # (Auto) 0.1, Baso # (Auto) 0.1, PT 14.9 H, INR 1.37 H, APTT 25.9, Sodium 141, Potassium 4.3, Chloride 103, Carbon Dioxide 32 H, Anion Gap 10.3, BUN 29 H, Creatinine 1.10, Estimated Creat Clear 99, Estimated GFR 67, Est GFR ( Amer) 81, Glucose 113 H, Calcium 9.3, Total Bilirubin 1.2, AST 88 H, ALT 101 H, Alkaline Phosphatase 70, Troponin I 0.07 H, NT-Pro-B Natriuret Pep 89386 H, Total Protein 7.0, Albumin 3.8, Globulin 3.2, Albumin/Globulin Ratio 1.2, Procalcitonin 0.121, HIV 1&2 Antibody Rapid Nonreactive 05/31/24 11:44: VBG pH 7.35, VBG pCO2 57.1 H, VBG pO2 37.4, VBG HCO3 30.5 H, VBG Total CO2 32.3 H, VBG O2 Saturation 70.9 H, VBG Base Excess 4.9 H, VBG Lactic Acid 2.3 H 05/31/24 15:08: Troponin I 0.06 H 05/31/24 16:06: Lactate 1.1 05/31/24 18:15: Troponin I 0.06 H I & O for Labs for Last 24 Hours: Intake & Output 05/29/24 05/30/24 05/31/24 06/01/24 23:59 22:59 23:59 23:59 Intake Total 944.934 / 944.934 8.75 / 8.75 Output Total 2125 / 2125 Balance -1180.066 / -1180.066 8.75 / 8.75 Weight 238 lb 5 oz 238 lb 5.009 oz Microbiology Reports for the Last 24 Hours: Microbiology 05/31/24 19:50 Sputum - Expectorated Sputum Gram Stain - Preliminary Constitutional: Present no acute distress and cooperative Head: Present normocephalic Eye: Present as per HPI Neck: Present trachea midline Respiratory: Present normal respiratory effort and able to speak in complete sentences Comment:: Breathing that discomfort using facemask oxygen. Cardiac: Absent posterior tibial pulses present or pedal pulses present Comment:: B/L DP were weakly palpable, absent PT pulses secondary to 2+ pedal edema.Toes and feet cool to touch, feet in dependent position present with pinkish purplish hue noted to toes forefront foot. When her feet are elevated, the posterior toes hallux, second and fourth toes remain purple in color. Feet and lower extremity are absent and hair growth, shiny skin to bilateral lower legs. Comments:: Deferred Rectal (male): Present deferred (male): Present deferred Extremities: Present edema (2+ pedal and lower extremity edema); Absent tenderness, normal capillary refill (Delayed cap refill for >5 seconds) or calf tenderness Comment:: Cool and discolored lower extremities, excessive dryness noted to bilateral ankles tops of feet and bases of toes. Skin: Present intact, erythema (Bilateral toes have a hue of erythema and purplish color) and normal turgor; Absent lesions or wounds Neuro: Present Motor Function Intact, Sensory Function Intact, oriented x 3, tone normal and moves all extremities Comment:: Light touch protective sensation intact, no focal deficits, nml muscle mass. Did not present with any neuropathy type symptoms. Ankle: bilateral: erythema (2+ edema), bilateral: swelling (Bilateral feet and lower extremity edema), bilateral: tenderness (Bilateral feet and lower legs tender from edema) and bilateral: decreased ROM Feet/Toes: bilateral: erythema (Reddish to purple hue noted to feet), bilateral: nail abnormalities (Onychomycosis and dystrophy noted), bilateral: onychomycosis (Suspected on all the toes thickened discoloration noted), bilateral: swelling (2+ pedal edema) and bilateral: tenderness (Feet and lower legs tenderness from edema) Inspection: Present nail disorder; Absent skin break or ulceration Pulses: L dorsalis pedis pulse: diminished (Decreased PT pulse/secondary to 2+ edema), R dorsalis pedis pulse: diminished (Decreased PT pulse/secondary 2+ edema), L posterior tibial pulse: diminished (Absent PT pulse) and R posterior tibial pulse: diminished (Absent PT pulse) CFT: dim: CFT (CFT> 5 seconds) Monofilament exam: L 1st metatarsals: normal, L 3rd metatarsals: normal, L 5th metatarsals: normal, L great toe: normal, L 3rd toe: normal, L 5th toe: normal, R 1st metatarsals: normal, R 3rd metatarsals: normal, R 5th metatarsals: normal, R great toe: normal, R 3rd toe: normal and R 5th toe: normal Pinprick: L great toe: normal and R great toe: normal Ankle reflex: Left: abnormal and Right: abnormal Results Labs 06/01/24 05:19 06/01/24 05:19 Labs: Abnormal lab results 05/31/24 05/31/24 05/31/24 Range/Units 11:27 11:44 15:08 WBC 12.2 H (4.8-10.8) K/mm3 Hct 54.8 H (42.0-52.0) % MCHC 31.5 L (31.8-35.4) g/dL Neut % (Auto) 82.0 H (37.0-80.0) % Neut # (Auto) 10.0 H (1.8-7.8) K/mm3 PT 14.9 H (10.1-12.5) seconds INR 1.37 H (0.9-1.1) VBG pCO2 57.1 H (35-51) mmol/L VBG HCO3 30.5 H (23-30) mmol/L VBG Total CO2 32.3 H (23-27) mmol/L VBG O2 Saturation 70.9 H (50-70) % VBG Base Excess 4.9 H (-2.4-2.3) mmol/L VBG Lactic Acid 2.3 H (0.4-2.0) mmol/L Carbon Dioxide 32 H (22.0-30.0) mmol/L BUN 29 H (9-20) mg/dl Glucose 113 H (74-100) mg/dl AST 88 H (17-59) U/L ALT 101 H (12-78) U/L Troponin I 0.07 H 0.06 H (0.00-0.034) ng/ml NT-Pro-B Natriuret Pep 90085 H (0-125) pg/mL 05/31/24 Range/Units 18:15 WBC (4.8-10.8) K/mm3 Hct (42.0-52.0) % MCHC (31.8-35.4) g/dL Neut % (Auto) (37.0-80.0) % Neut # (Auto) (1.8-7.8) K/mm3 PT (10.1-12.5) seconds INR (0.9-1.1) VBG pCO2 (35-51) mmol/L VBG HCO3 (23-30) mmol/L VBG Total CO2 (23-27) mmol/L VBG O2 Saturation (50-70) % VBG Base Excess (-2.4-2.3) mmol/L VBG Lactic Acid (0.4-2.0) mmol/L Carbon Dioxide (22.0-30.0) mmol/L BUN (9-20) mg/dl Glucose (74-100) mg/dl AST (17-59) U/L ALT (12-78) U/L Troponin I 0.06 H (0.00-0.034) ng/ml NT-Pro-B Natriuret Pep (0-125) pg/mL H & H 05/31/24 Range/Units 11:27 Hgb 17.2 (14.1-18.0) g/dL Hct 54.8 H (42.0-52.0) % Coagulation 05/31/24 Range/Units 11:27 INR 1.37 H (0.9-1.1) All other labs normal. Assessment and Plan *Assessment and plan (1) Onychomycosis: Status: Acute Category: Medical Code(s): B35.1 - Tinea unguium (2) Onychodystrophy: Status: Acute Category: Medical Code(s): L60.3 - Nail dystrophy (3) Discoloration and thickening of nails both feet: Status: Acute Category: Medical Code(s): L60.8 - Other nail disorders (4) Decreased pedal pulses: Status: Acute Category: Medical Code(s): R09.89 - Other specified symptoms and signs involving the circulatory and respiratory systems (5) Keratosis: Status: Acute Category: Medical Code(s): L57.0 - Actinic keratosis (6) Cool skin: Status: Acute Category: Medical Code(s): R23.1 - Pallor (7) Discolored skin: Status: Acute Category: Medical Code(s): L81.9 - Disorder of pigmentation, unspecified Plan 06/01/24: New patient Podiatry consult presents with onychodystrophy, onychomycosis, nondiabetic needing nail trim -Onychodystrophy/Onychomycosis Plan -Nails were debrided x?s 10 utilizing manual debridement with a nail nipper. -Patient tolerated the procedure well. -Recommend the use of silvia board to file nails down and keep thinner. -Discussed using over the counter antifungal products (Kerasal) to start fungus treatment Decreased pedal pulses, discolored feet, toes with a hue of purple/ b/l lower extremity edema: -Decreased pedal pulses R09.89 -Skin Changes -Discussed with the patient the possibility of vascular disease. -I explained the difference between macro and micro vascular disease. -I explained that macrovascular disease usually involves stenosis or blockage of arteries and requires stenting to open up the vessel to improve circulation. -I explained that microvascular disease is much harder to treat because you cannot stent this and it often involves the feet. We discussed how problems with arterial circulation can cause coldness and discoloration to the toes, pain to the digits, delayed healing of wounds, arterial wounds, and gangrene. -We discussed how problems with venous circulation can cause fluid retention, swelling, pain and delayed healing of venous wounds. -New order placed to Check vascular studies: HOLLY/toe pressures to evaluate for new skin changes -Patient is also following with Cardiology and if blockages noted may plan to have runoff while he is still inpatient if needed. -All order per Dr. Payton
[2024-06-01 07:02] LABS: Basophils % 0.2 % (0.1-2.0); Hematocrit 50.4 % (42.0-52.0); Hemoglobin 16.2 g/dL (14.1-18.0); Lymphocytes # 0.8 K/mm3 (0.7-4.5); Lymphocytes % 5.2 % (10-50); Mean Corpuscular HGB Conc 32.2 g/dL (31.8-35.4); Mean Corpuscular Hemoglobin 28.8 pg (27.0-31.2); Mean Corpuscular Volume 89.4 fl (80-94); Mean Platelet Volume 8.5 fl (7.4-10.4); Monocytes % 6.5 % (1.7-9.3); Neutrophils # 13.9 K/mm3 (1.8-7.8); Neutrophils % 88.2 % (37.0-80.0); Platelet Count 237 K/mm3 (142-424); Red Blood Count 5.64 M/mm3 (4.60-6.20); Red Cell Distribution Width 15.1 % (11.5-17.5); White Blood Count 15.8 K/mm3 (4.8-10.8)
[2024-06-01 07:03] LABS: MANUAL DIFFERENTIAL MANUAL DIFFERENTIAL (MANUAL DIFF)
[2024-06-01] MEDS: dilTIAZem HCL 100 MG in 0.9 % SODIUM CHLORIDE 100 ML IV (07:13)
[2024-06-01 07:18] LABS: Alanine Aminotransferase 79 U/L (12-78); Albumin Level 3.5 g/dl (3.5-5.0); Albumin/Globulin Ratio 1.3 (1.1-1.8); Alkaline Phosphatase 63 U/L (38-126); Anion Gap 3.8 mEq/L (5-15); Aspartate Amino Transferase 59 U/L (17-59); Blood Urea Nitrogen 31 mg/dl (9-20); Calcium 8.9 mg/dl (8.4-10.2); Carbon Dioxide 38 mmol/L (22.0-30.0); Chloride 99 mmol/L (98-107); Creatinine Clearance Estimated 93 mL/min (50-200); Estimated Glomerular Filt Rate 61 ml/min (>60); GFR (African American) 73 ML/MIN (>60); Globulin 2.7 g/dL (1.3-3.2); Glucose 80 mg/dl (74-100); Magnesium 2.3 mg/dl (1.6-2.3); Potassium 3.8 mmoL/L (3.5-5.1); Sodium 137 mmol/L (136-145); Total Protein,Serum 6.2 g/dl (6.3-8.2)
--- NOTE | 2024-06-01 07:50 | US_ITS ---
FINAL REPORT CLINICAL HISTORY: diminished pulses, AFIB, Smoker, CHF, COPD FINDINGS: Ankle-brachial indices were obtained. The right HOLLY is 1.4. The left HOLLY is 1.4. IMPRESSION: Normal ABIs bilaterally. Authenticated and ERN
--- NOTE | 2024-06-01 08:13 | PC.NURSE ---
Pt placed on 4L O2 NC.
--- NOTE | 2024-06-01 08:18 | CA_ITS ---
FINAL REPORT CLINICAL HISTORY: CHF, PEDAL EDEMA COMPARISON: None FINDINGS: Color Doppler, duplex Doppler and compression sonography of the bilateral lower extremities was performed. There is no evidence of deep venous thrombosis from the level of the groin to the calf. The deep veins are patent and compressible. IMPRESSION: No evidence of deep venous thrombosis bilateral lower extremities. Authenticated and ERN
--- NOTE | 2024-06-01 08:18 | EXP.CARD.PN ---
Subjective Subjective Date: 06/01/24 Time: 08:00 Exam Data for Last 24 hours Vital signs and Labs for Last 24 Hours: Temp Pulse Resp BP Pulse Ox O2 Del Method O2 Flow Rate 97.6 F 129 H 22 107/73 L 91 L Venturi Mask 12 06/01/24 07:39 06/01/24 06:17 06/01/24 06:00 06/01/24 06:00 06/01/24 06:17 06/01/24 06:53 06/01/24 06:17 FiO2 40 06/01/24 06:17 Laboratory Results - last 24 hr 05/31/24 11:27: WBC 12.2 H, RBC 6.06, Hgb 17.2, Hct 54.8 H, MCV 90.4, MCH 28.4, MCHC 31.5 L, RDW 15.0, Plt Count 265, MPV 8.5, Neut % (Auto) 82.0 H, Lymph % (Auto) 10.9, [place] % (Auto) 6.0, Eos % (Auto) 0.5, Baso % (Auto) 0.5, Neut # (Auto) 10.0 H, Lymph # (Auto) 1.3, [place] # (Auto) 0.7, Eos # (Auto) 0.1, Baso # (Auto) 0.1, PT 14.9 H, INR 1.37 H, APTT 25.9, Sodium 141, Potassium 4.3, Chloride 103, Carbon Dioxide 32 H, Anion Gap 10.3, BUN 29 H, Creatinine 1.10, Estimated Creat Clear 99, Estimated GFR 67, Est GFR ( Amer) 81, Glucose 113 H, Calcium 9.3, Total Bilirubin 1.2, AST 88 H, ALT 101 H, Alkaline Phosphatase 70, Troponin I 0.07 H, NT-Pro-B Natriuret Pep 64795 H, Total Protein 7.0, Albumin 3.8, Globulin 3.2, Albumin/Globulin Ratio 1.2, Procalcitonin 0.121, HIV 1&2 Antibody Rapid Nonreactive 05/31/24 11:44: VBG pH 7.35, VBG pCO2 57.1 H, VBG pO2 37.4, VBG HCO3 30.5 H, VBG Total CO2 32.3 H, VBG O2 Saturation 70.9 H, VBG Base Excess 4.9 H, VBG Lactic Acid 2.3 H 05/31/24 15:08: Troponin I 0.06 H 05/31/24 16:06: Lactate 1.1 05/31/24 18:15: Troponin I 0.06 H 06/01/24 05:19: WBC 15.8 H D, RBC 5.64, Hgb 16.2, Hct 50.4, MCV 89.4, MCH 28.8, MCHC 32.2, RDW 15.1, Plt Count 237, MPV 8.5, Neut % (Auto) 88.2 H, Lymph % (Auto) 5.2 L, [place] % (Auto) 6.5, Eos % (Auto) 0.0 L, Baso % (Auto) 0.2, Neut # (Auto) 13.9 H, Lymph # (Auto) 0.8, [place] # (Auto) 1.0, Eos # (Auto) 0.0, Baso # (Auto) 0.0, Sodium 137, Potassium 3.8, Chloride 99, Carbon Dioxide 38 H, Anion Gap 3.8 L, BUN 31 H, Creatinine 1.20, Estimated Creat Clear 93, Estimated GFR 61, Est GFR ( Amer) 73, Glucose 80 D, Calcium 8.9, Magnesium 2.3, Total Bilirubin 1.0, AST 59 D, ALT 79 H, Alkaline Phosphatase 63, Total Protein 6.2 L, Albumin 3.5, Globulin 2.7, Albumin/Globulin Ratio 1.3 I & O for Last 24 hours: Intake & Output 05/29/24 05/30/24 05/31/24 06/01/24 11:59 10:59 11:59 11:59 Intake Total 953.684 / 953.684 Output Total 2125 / 2125 Balance -1171.316 / -1171.316 Weight 234 lb 238 lb 5.009 oz Microbiology Reports for the Last 24 Hours: Microbiology 05/31/24 19:50 Sputum - Expectorated Sputum Gram Stain - Preliminary Constitutional Constitutional: no acute distress *Routine Respiratory Exam Respiratory: Present decreased breath sounds and rhonchi; Absent wheezes *Routine Cardiovascular Exam Cardiovascular: Present irregularly irregular *Routine Extremities Exam Extremities: Present edema *Routine Neurological Exam Neurological: Present alert, oriented X3 and CN II-XII intact Progress Note: A&P Assessment and plan (1) Atrial fibrillation with RVR: Status: Acute (2) Acute hypoxemic respiratory failure: Status: Acute (3) New onset of congestive heart failure: Status: Acute (4) COPD exacerbation: Status: Acute (5) HFrEF (heart failure with reduced ejection fraction): Status: Acute (6) Leg edema: Status: Acute (7) Elevated troponin: Status: Acute Assessment and Plan Assessment and Plan for All Diagnoses:: 1. A. fib with RVR, new diagnosis -CHADS-VASC score of 3 (CHF, age, vascular disease) -continue lovenox until after cardiac cath -Discontinue diltiazem due to cardiomyopathy -start coreg for rate control and cardiomyopathy 2. HFrEF with BNP [id number] and transaminitis -Echo EF about 25% (official report pending) -continue IV lasix -add spironolactone and entresto -add Jardiance 3. Emphysema with continued tobacco use -RLL pneumonia on CXR, started on Azithromycin -Hypoxia, improved on nasal oxygen 4. Elevated INR 1.37 without anticoagulation 5. Transaminitis -improving -likely due to vascular congestion 6. Dyslipidemia -statin started 7. Mildly Elevated troponins -likely due to strain from CHF but cannot rule out AR in light of cardiomyopathy -will need [facility] -continue ASA Continue diuresis and rate control Start GDMT for HFrEF/Cardiomyopathy Cardiac cath once able to lie flat and WBC improved. Start process for LifeVest
[2024-06-01] MEDS: FUROSEMIDE 40MG/4ML VIAL 40 MG IV ×2 (08:22→09:32)
[2024-06-01] MEDS: ASPIRIN EC 81MG TABLET 81 MG PO (08:22)
[2024-06-01] MEDS: predniSONE 20MG TAB 40 MG PO (08:23)
[2024-06-01] MEDS: SACUBITRIL/VALSARTAN 24-26MG TABLET 1 EACH PO ×2 (08:23→20:27)
[2024-06-01] MEDS: CARVEDILOL 3.125MG TABLET 3.125 MG PO ×2 (08:23→20:27)
[2024-06-01] MEDS: SPIRONOLACTONE 25MG TABLET 25 MG PO ×2 (08:23→20:27)
[2024-06-01 08:44] LABS: Hemoglobin A1C 5.4 % (4.0-6.0)
[2024-06-01 08:47] LABS: Lymphocytes % 10 % (10-50); Monocytes % 3 % (2-9); Neutrophils % 87 % (42-76); Platelet Estimate Normal; RBC Morphology Normal; Total Cells Counted 100
--- NOTE | 2024-06-01 09:27 | P.CONS_ITS ---
History of Present Illness History of present illness: Mr. Hodge is a 64-year-old male with reported history of tobacco abuse COPD presented to ER with worsening respiratory distress and pulmonary was called for further evaluation and management. Upon further questioning he is a current smoker, greater than [id number] smoking history but not using any inhalers or nebulizer therapies at baseline. Progressively worsening respiratory failure worsening cough productive phlegm and wheezing. [facility] Disclaimer: The information contained in this section may have been updated after the patient was seen, as this information can be updated by other users. Medical History (Updated 06/01/24 @ 10:09 by Aparna Cardenas MD) Acute respiratory failure with hypoxia and hypercapnia Atrial fib/flutter, transient CHF (congestive heart failure) COPD (chronic obstructive pulmonary disease) Family History (Updated 05/31/24 @ 14:39 by Roxy Martins, RN) Other No significant family history Social History (Updated 05/31/24 @ 14:40 by Roxy Martins, RN) Smoking Status: Current every day smoker alcohol intake: never current occupational status: unemployed Travel in the last 8 weeks: None Review of Systems Constitutional Constitutional: Reports anorexia, Reports body ache(s) and Reports fatigue Eyes Eyes: Denies eye discharge, Denies dry eyes, Denies irritation and Denies itchy eyes ENT Ears, Nose, Mouth, and Throat: Denies epistaxis, Denies facial pain, Denies lip swelling and Denies throat swelling *Cardiovascular Cardiovascular: Reports dyspnea and Reports dyspnea on exertion *Respiratory Respiratory: Reports change in phlegm color, Reports chest congestion, Reports cough, Reports dyspnea, Reports dyspnea on exertion, Reports excessive phlegm production, Denies hemoptysis, Denies pain on inspiration, Denies pain with cough and Reports wheezing *Gastrointestinal Gastrointestinal: Denies abdominal pain, Denies belching and Denies cramping *Musculoskeletal Musculoskeletal: Reports back pain, Reports myalgias and Reports other (No small joint swelling or Pain) Psychiatric Psychiatric: Denies homicidal ideation and Denies suicidal ideation Endocrine Endocrine: Reports fatigue and Denies heat intolerance Hematologic/Lymphatic Hematologic/Lymphatic: Denies easy bleeding and Denies lymphadenopathy Allergic/Immunologic Allergic/Immunologic: Denies itchy eyes, Denies lip swelling, Denies throat swelling and Reports wheezing Pulmonology Exam Inpatient Vital signs and Labs for Last 24 Hours: Temp Pulse Resp BP Pulse Ox O2 Del Method O2 Flow Rate 97.6 F 129 H 22 107/73 L 93 L Nasal Cannula 4 06/01/24 07:39 06/01/24 06:17 06/01/24 06:00 06/01/24 06:00 06/01/24 08:41 06/01/24 08:41 06/01/24 08:41 FiO2 40 06/01/24 06:17 Laboratory Results - last 24 hr 05/31/24 11:27: WBC 12.2 H, RBC 6.06, Hgb 17.2, Hct 54.8 H, MCV 90.4, MCH 28.4, MCHC 31.5 L, RDW 15.0, Plt Count 265, MPV 8.5, Neut % (Auto) 82.0 H, Lymph % (Auto) 10.9, [place] % (Auto) 6.0, Eos % (Auto) 0.5, Baso % (Auto) 0.5, Neut # (Auto) 10.0 H, Lymph # (Auto) 1.3, [place] # (Auto) 0.7, Eos # (Auto) 0.1, Baso # (Auto) 0.1, PT 14.9 H, INR 1.37 H, APTT 25.9, Sodium 141, Potassium 4.3, Chloride 103, Carbon Dioxide 32 H, Anion Gap 10.3, BUN 29 H, Creatinine 1.10, Estimated Creat Clear 99, Estimated GFR 67, Est GFR ( Amer) 81, Glucose 113 H, Calcium 9.3, Total Bilirubin 1.2, AST 88 H, ALT 101 H, Alkaline Phosphatase 70, Troponin I 0.07 H, NT-Pro-B Natriuret Pep 02533 H, Total Protein 7.0, Albumin 3.8, Globulin 3.2, Albumin/Globulin Ratio 1.2, Procalcitonin 0.121, HIV 1&2 Antibody Rapid Nonreactive 05/31/24 11:44: VBG pH 7.35, VBG pCO2 57.1 H, VBG pO2 37.4, VBG HCO3 30.5 H, VBG Total CO2 32.3 H, VBG O2 Saturation 70.9 H, VBG Base Excess 4.9 H, VBG Lactic Acid 2.3 H 05/31/24 15:08: Troponin I 0.06 H 05/31/24 16:06: Lactate 1.1 05/31/24 18:15: Troponin I 0.06 H 06/01/24 05:19: WBC 15.8 H D, RBC 5.64, Hgb 16.2, Hct 50.4, MCV 89.4, MCH 28.8, MCHC 32.2, RDW 15.1, Plt Count 237, MPV 8.5, Neut % (Auto) 88.2 H, Lymph % (Auto) 5.2 L, [place] % (Auto) 6.5, Eos % (Auto) 0.0 L, Baso % (Auto) 0.2, Neut # (Auto) 13.9 H, Lymph # (Auto) 0.8, [place] # (Auto) 1.0, Eos # (Auto) 0.0, Baso # (Auto) 0.0, Total Counted 100, Neutrophils % (Manual) 87 H, Lymphocytes % (Manual) 10, Monocytes % (Manual) 3, Platelet Estimate Normal, RBC Morphology Normal, Sodium 137, Potassium 3.8, Chloride 99, Carbon Dioxide 38 H, Anion Gap 3.8 L, BUN 31 H, Creatinine 1.20, Estimated Creat Clear 93, Estimated GFR 61, Est GFR ( Amer) 73, Glucose 80 D, Hemoglobin A1c 5.4, Calcium 8.9, Magnesium 2.3, Total Bilirubin 1.0, AST 59 D, ALT 79 H, Alkaline Phosphatase 63, Total Protein 6.2 L, Albumin 3.5, Globulin 2.7, Albumin/Globulin Ratio 1.3 I & O for Labs for Last 24 Hours: Intake & Output 05/29/24 05/30/24 05/31/24 06/01/24 23:59 22:59 23:59 23:59 Intake Total 944.934 / 944.934 8.75 / 8.75 Output Total 2125 / 2125 0 / 0 Balance -1180.066 / -1180.066 8.75 / 8.75 Weight 238 lb 5 oz 238 lb 5.009 oz Microbiology Reports for the Last 24 Hours: Microbiology 05/31/24 19:50 Sputum - Expectorated Sputum Gram Stain - Preliminary Constitutional: Present moderate distress Head: Present normocephalic and atraumatic ENT: Present normal exam, normal oropharynx and mucous membranes moist Neck: Present normal inspection and full ROM Respiratory: Present prolonged expiratory phase, respiratory distress and able to speak in complete sentences; Absent wheezes Cardiac: Present S1/S2, Tachycardia and radial pulses present GI: Present soft and distention; Absent tenderness or guarding Skin: Present intact; Absent cyanosis or jaundice Neuro: Present alert, awake and oriented x 3 Extremities: Present normal inspection; Absent clubbing or cyanosis Psychiatric: Present normal affect and cooperative Meds Home Medications and Allergies Home Medications ?Medication ?Instructions ?Recorded ?Confirmed ?Type aspirin 325 mg tablet,delayed 325 mg PO DAILY 05/31/24 05/31/24 History release New Prescriptions to Start Prescriptions: Allergies Allergy/AdvReac Type Severity Reaction Status Date / Time No Known Allergies Allergy Unverified 05/31/24 12:35 Results Laboratory Findings 06/01/24 05:19 06/01/24 05:19 PT/INR, D-dimer PT 14.9 seconds (10.1-12.5) H 05/31/24 11:27 INR 1.37 (0.9-1.1) H 05/31/24 11:27 Abnormal lab findings: Abnormal Labs 05/31/24 05/31/24 05/31/24 11:27 11:44 15:08 WBC 12.2 H Hct 54.8 H MCHC 31.5 L Neut % (Auto) 82.0 H Lymph % (Auto) Eos % (Auto) Neut # (Auto) 10.0 H Neutrophils % (Manual) PT 14.9 H INR 1.37 H VBG pCO2 57.1 H VBG HCO3 30.5 H VBG Total CO2 32.3 H VBG O2 Saturation 70.9 H VBG Base Excess 4.9 H VBG Lactic Acid 2.3 H Carbon Dioxide 32 H Anion Gap BUN 29 H Glucose 113 H AST 88 H ALT 101 H Troponin I 0.07 H 0.06 H NT-Pro-B Natriuret Pep 62245 H Total Protein 05/31/24 06/01/24 18:15 05:19 WBC 15.8 H D Hct MCHC Neut % (Auto) 88.2 H Lymph % (Auto) 5.2 L Eos % (Auto) 0.0 L Neut # (Auto) 13.9 H Neutrophils % (Manual) 87 H PT INR VBG pCO2 VBG HCO3 VBG Total CO2 VBG O2 Saturation VBG Base Excess VBG Lactic Acid Carbon Dioxide 38 H Anion Gap 3.8 L BUN 31 H Glucose AST ALT 79 H Troponin I 0.06 H NT-Pro-B Natriuret Pep Total Protein 6.2 L Assessment and Plan *Assessment and plan (1) COPD exacerbation: Status: Acute Category: Medical Code(s): J44.1 - Chronic obstructive pulmonary disease with (acute) exacerbation (2) Acute respiratory failure with hypoxia and hypercapnia: Status: Acute Category: Medical Code(s): J96.01 - Acute respiratory failure with hypoxia; J96.02 - Acute respiratory failure with hypercapnia Plan Mr. Hodge is a 64-year-old male with reported history of tobacco abuse COPD presented to ER with worsening respiratory distress and pulmonary was called for further evaluation and management. Upon further questioning he is a current smoker, greater than [id number] smoking history but not using any inhalers or nebulizer therapies at baseline. Progressively worsening respiratory failure worsening cough productive phlegm and wheezing. CTA upon admission, no evidence of pulmonary embolism but upper lobe predominant diffuse centrilobular emphysematous changes. No dense consolidative/airspace changes noted. Neutrophilic predominant leukocytosis. Afebrile. Hemodynamically stable. Venous blood gas upon admission mild hypercarbic respiratory failure. Currently being managed for COPD exacerbation with nebulization therapies and steroids. Blood and sputum cultures pending. On initial examination patient appeared to be in moderate respiratory distress. No wheezing noted condition immediately after receiving nebulization therapies. On 4 L nasal cannula saturating 98%. Patient also being managed for CHF exacerbation and A-fib RVR. Plan: Continue Xopenex and ipratropium every 6 hours along with Pulmicort every 12 scheduled Continue oxygen supplementation to maintain O2 saturation goal of 90% and will need to 2 L. Not using oxygen supplementation at baseline. Continue ceftriaxone azithromycin pending sputum culture results. Continue prednisone 40 mg daily to complete a total of 5-day course # Thank you for involving pulmonary in this patient care. Will continue to follow.
[2024-06-01 09:28] LABS: HCV Ab Non Reactive (Non Reactive)
[2024-06-01] MEDS: EMPAGLIFLOZIN 10MG TABLET 10 MG PO (09:32)
[2024-06-01] MEDS: AZITHROMYCIN 500 MG in 0.9 % SODIUM CHLORIDE 250 ML 250 MG IV (15:06)
[2024-06-01] MEDS: FUROSEMIDE 100MG/10ML VIAL 80 MG IV (15:06)
--- NOTE | 2024-06-01 15:47 | PC.NURSE ---
Pt is currently sitting up in his chair. Pt denies any discomfort. No SOA. Remains on 2L O2 NC with sats in lower 90s. Pt remains afib on telemetry. HR 90s -110s with noted short intervals of HR in the 130s with exertion. He has diuresed well this shift. Urine output has been 3700 ml. Voids via Purewick. Has ambulated to chair without difficulty. Call light within reach.
[2024-06-01] MEDS: BUDESONIDE 0.5MG/2ML NEB 0.5 MG IH (18:08)
--- NOTE | 2024-06-01 19:02 | P.PN_ITS ---
Subjective *Date: 06/01/24 *Time: 22:22 Interval history: Continues to necessitate 2 L nasal cannula oxygen. Denies any chest pain today. No nausea or vomiting. Negative fluid status so far today at 1 L this morning. Tolerating p.o. intake. Medical Exam Vital signs and Labs for Last 24 Hours: Vital Signs Temp Pulse Pulse Pulse Resp BP Pulse Ox 06/01/24 18:39 06/01/24 18:11 117 H 06/01/24 18:11 105 H 06/01/24 18:11 90 L 06/01/24 18:00 108 H 18 99/53 L 92 L 06/01/24 17:00 06/01/24 16:00 110 H 06/01/24 16:00 101 H 20 97/59 L 91 L 06/01/24 16:00 97.8 F 06/01/24 16:00 06/01/24 15:56 91 L 06/01/24 14:59 06/01/24 14:00 105 H 20 105/47 L 94 L 06/01/24 13:00 06/01/24 12:00 90 06/01/24 12:00 105 H 18 94/70 L 95 06/01/24 11:45 97.8 F 06/01/24 11:44 83 06/01/24 11:44 80 06/01/24 11:00 06/01/24 10:45 86 L 06/01/24 10:00 96 H 20 109/63 L 93 L 06/01/24 09:36 117 H 06/01/24 09:36 117 H 06/01/24 09:36 95 06/01/24 09:00 06/01/24 09:00 06/01/24 08:41 93 L 06/01/24 08:00 110 H 06/01/24 08:00 95 H 20 94/80 L 95 06/01/24 08:00 06/01/24 07:39 97.6 F 06/01/24 06:53 06/01/24 06:17 129 H 06/01/24 06:17 123 H 06/01/24 06:17 91 L 06/01/24 06:00 108 H 22 107/73 L 94 L 06/01/24 05:00 06/01/24 04:00 110 H 06/01/24 04:00 103 H 24 129/90 06/01/24 03:00 06/01/24 02:00 82 22 122/74 90 L 06/01/24 01:00 06/01/24 00:29 97.8 F 06/01/24 00:00 90 06/01/24 00:00 86 20 109/76 L 92 L 06/01/24 00:00 92 L 05/31/24 23:00 05/31/24 22:00 109 H 20 108/80 L 92 L 05/31/24 21:00 05/31/24 20:00 110 H 05/31/24 20:00 98.5 F 05/31/24 20:00 105 H 22 139/67 96 05/31/24 19:55 92 L 05/31/24 19:48 107 H 05/31/24 19:48 111 H 05/31/24 19:48 94 L O2 Del Method O2 Flow Rate FiO2 06/01/24 18:39 Nasal Cannula 2 06/01/24 18:11 06/01/24 18:11 06/01/24 18:11 Nasal Cannula 2 06/01/24 18:00 Nasal Cannula 2 06/01/24 17:00 Nasal Cannula 2 06/01/24 16:00 06/01/24 16:00 Nasal Cannula 2 06/01/24 16:00 06/01/24 16:00 Nasal Cannula 2 06/01/24 15:56 Nasal Cannula 2 06/01/24 14:59 Nasal Cannula 2 06/01/24 14:00 Nasal Cannula 2 06/01/24 13:00 Nasal Cannula 2 06/01/24 12:00 06/01/24 12:00 Nasal Cannula 2 06/01/24 11:45 06/01/24 11:44 06/01/24 11:44 06/01/24 11:00 Nasal Cannula 2 06/01/24 10:45 Nasal Cannula 2 06/01/24 10:00 Nasal Cannula 2 06/01/24 09:36 06/01/24 09:36 06/01/24 09:36 Nasal Cannula 4 06/01/24 09:00 Nasal Cannula 4 06/01/24 09:00 Nasal Cannula 4 06/01/24 08:41 Nasal Cannula 4 06/01/24 08:00 06/01/24 08:00 Nasal Cannula 4 06/01/24 08:00 Nasal Cannula 4 06/01/24 07:39 06/01/24 06:53 Venturi Mask 06/01/24 06:17 06/01/24 06:17 06/01/24 06:17 Venturi Mask 12 40 06/01/24 06:00 Venturi Mask 06/01/24 05:00 Venturi Mask 06/01/24 04:00 06/01/24 04:00 Venturi Mask 4 06/01/24 03:00 Venturi Mask 06/01/24 02:00 Nasal Cannula 5 06/01/24 01:00 Nasal Cannula 5 06/01/24 00:29 06/01/24 00:00 06/01/24 00:00 Nasal Cannula 5 06/01/24 00:00 Nasal Cannula 5 05/31/24 23:00 Nasal Cannula 5 05/31/24 22:00 Nasal Cannula 4 05/31/24 21:00 Nasal Cannula 4 05/31/24 20:00 05/31/24 20:00 05/31/24 20:00 Nasal Cannula 4 05/31/24 19:55 Nasal Cannula 4 05/31/24 19:48 05/31/24 19:48 05/31/24 19:48 Nasal Cannula 4 Intake and Output 06/01/24 06/01/24 06/01/24 07:59 15:59 23:59 Intake Total 8.75 / 548.75 540 / 548.75 Output Total 0 / 3700 3700 / 3700 Balance 8.75 / -3151.25 -3700 / -3151.25 540 / -3151.25 Intake: Intake, Oral Amount 540 / 540 Intake, Total IV Amount 8.75 / 8.75 Output: Output, Urine Amount 0 / 3700 3700 / 3700 Other: Number of Voids 0 Number of Unmeasured Voids 300 0 Weight 108.097 kg Patient Weight 06/01/24 23:59 Weight 108.097 kg Laboratory Results - last 24 hr 05/31/24 11:27: Hepatitis C Antibody Non reactive 05/31/24 18:15: Troponin I 0.06 H 06/01/24 05:19: WBC 15.8 H D, RBC 5.64, Hgb 16.2, Hct 50.4, MCV 89.4, MCH 28.8, MCHC 32.2, RDW 15.1, Plt Count 237, MPV 8.5, Neut % (Auto) 88.2 H, Lymph % (Auto) 5.2 L, [place] % (Auto) 6.5, Eos % (Auto) 0.0 L, Baso % (Auto) 0.2, Neut # (Auto) 13.9 H, Lymph # (Auto) 0.8, [place] # (Auto) 1.0, Eos # (Auto) 0.0, Baso # (Auto) 0.0, Total Counted 100, Neutrophils % (Manual) 87 H, Lymphocytes % (Manual) 10, Monocytes % (Manual) 3, Platelet Estimate Normal, RBC Morphology Normal, Sodium 137, Potassium 3.8, Chloride 99, Carbon Dioxide 38 H, Anion Gap 3.8 L, BUN 31 H, Creatinine 1.20, Estimated Creat Clear 93, Estimated GFR 61, Est GFR ( Amer) 73, Glucose 80 D, Hemoglobin A1c 5.4, Calcium 8.9, Magnesium 2.3, Total Bilirubin 1.0, AST 59 D, ALT 79 H, Alkaline Phosphatase 63, Total Protein 6.2 L, Albumin 3.5, Globulin 2.7, Albumin/Globulin Ratio 1.3 I & O for Labs for Last 24 Hours: Intake & Output 05/29/24 05/30/24 05/31/24 06/01/24 23:59 22:59 23:59 23:59 Intake Total 944.934 / 944.934 548.75 / 548.75 Output Total 2125 / 2125 3700 / 3700 Balance -1180.066 / -1180.066 -3151.25 / -3151.25 Weight 108.097 kg 108.097 kg Microbiology Reports for the Last 24 Hours: Microbiology 05/31/24 11:27 Blood Blood Culture - Preliminary NO GROWTH AFTER 24 HOURS 05/31/24 12:36 Blood Blood Culture - Preliminary NO GROWTH AFTER 24 HOURS 05/31/24 19:50 Sputum - Expectorated Sputum Gram Stain - Preliminary 05/31/24 19:50 Sputum - Expectorated Sputum Sputum Culture - Preliminary Constitutional: Present no acute distress, obese and chronically ill appearing Head: Present atraumatic and normocephalic ENT: Present normal exam Respiratory: Present normal respiratory effort; Absent rhonchi, wheezes or crackles Cardiac: Present Irregularly Regular GI: Present soft and normal bowel sounds; Absent distention or tenderness Extremities: Present normal inspection, full ROM and edema (3+ to knees) Skin: Present intact; Absent erythema Neuro: Present Grossly Intact, alert, awake, oriented x 3 and moves all extremities Assessment and Plan *Assessment and plan (1) Atrial fibrillation with RVR: Status: Acute Category: Medical Code(s): I48.91 - Unspecified atrial fibrillation (2) Acute hypoxemic respiratory failure: Status: Acute Category: Medical Code(s): J96.01 - Acute respiratory failure with hypoxia (3) Atrial fibrillation, new onset: Status: Acute Category: Medical Code(s): I48.91 - Unspecified atrial fibrillation (4) New onset of congestive heart failure: Status: Acute Category: Medical Code(s): I50.9 - Heart failure, unspecified (5) COPD exacerbation: Status: Acute Category: Medical Code(s): J44.1 - Chronic obstructive pulmonary disease with (acute) exacerbation Plan Ky Hodge is a 64-year-old male with a medical history significant for tobacco use disorder, COPD presents with progressive shortness of breath over the last several days. He states he has had this on and off for the past years, but has been worse recently. Denies fever/chills, productive cough (baseline dry cough), nausea/vomiting, abdominal pain, constipation/diarrhea. No recent changes in medications. He states he does not use any inhalers for his COPD. He has been smoking apparently since grade 4. On arrival, patient was saturating at 87 on room air. He had diminished air movements and was given 3 DuoNebs and IV Lasix 60 mg, and developed A-fib RVR with heart rate up to 140s. Administered IV Lopressor 5 mg without improvement. Workup in the ED significant for WBC 12.2, VBG with compensated chronic CO2 retention, troponin 0.06, proBNP 15,200. EKG showed A-fib RVR. CXR suggestive of right lower lobe pneumonia. Case discussed with ED provider and decision was made to admit patient for acute hypoxic respiratory failure 2/2 COPD exacerbation, new onset heart failure, and A-fib RVR. #Acute hypoxic respiratory failure ? Combination of COPD exacerbation, community-acquired pneumonia. See separate problems. #A-fib with RVR #New onset systolic heart failure exacerbation #Pulmonary edema #Elevated troponins ? A-fib, HFrEF new diagnoses. In the setting of community-acquired pneumonia, new heart failure. ? Heart rate up to 140s on admission. Minimal response to IV Lopressor 5 mg in the ED. ?Discontinue diltiazem drip today, initiate oral rate controlling medication Initiate carvedilol 3.125 mg twice daily, empagliflozin 10 mg daily, Lasix 80 mg IV twice daily, and Entresto 24/26 mg 1 tablet twice daily - Kidney function stable with BUN 31, creatinine 1.2. ? Aspirin 81mg, atorvastatin 40mg started pending [facility] results tomorrow. ? Echo showing EF 30%. BNP still severely elevated at 15,000, continue diuresis ? Follow-up serial troponins. #Acute COPD exacerbation #Community-acquired pneumonia #Sepsis ?White count bumped to 15, suspect secondary to steroids vs infection - Pulmonology consulted to establish care for COPD. Discussed case today, Continue Xopenex and ipratropium every 6 hours. Continue budesonide twice daily. Cont. supplemental oxygen as needed for goal sats greater 90%, Currently on 2 L. Continue ceftriaxone and azithromycin while awaiting sputum culture. Prednisone for 5 days. #Severe onychomycosis ? Podiatry consulted, nails trimmed today. Full code DVT prophylaxis: Therapeutic Lovenox Cardiac diet
[2024-06-01] MEDS: ATORVASTATIN 40MG TABLET 40 MG PO (20:27)
[2024-06-02] VITALS (27 sets, daily range): BP systolic 90–142; BP diastolic 47–107; PULSE 78–127; RESP 16–22; TEMP 36.4–36.6; O2SAT 88–96; BMI 28.7
--- NOTE | 2024-06-02 | IR_ITS ---
APPROVED REPORT Patient Location: Inpatient PROCEDURES Selective coronary angiogram INDICATION New onset cardiomyopathy ejection fraction 30%, Acute non-ST elevation myocardial infarction Informed consent was obtained prior to the procedure. COMPLICATIONS None Estimated Blood Loss: Less than 10 mls TECHNIQUE One percent lidocaine used to anesthetize the right anterior aspect of the wrist. The right radial artery was accessed via the Seldinger technique. A 6 [place] sheath was placed in the right radial artery. 2.5 mg of Verapamil, 800 mcg of nitroglycerin, 1mg Lidocaine and 5000 U Heparin were given through the arterial sheath. The 6 [place] JL 3 guide catheter selective coronary angiogram. At the end of the procedure the sheath was removed good hemostasis was achieved using Traclet band, patient was transferred to the postop holding area in stable condition. ANGIOGRAPHIC RESULTS The left main artery Has an ostial eccentric 30 to 40% stenosis with no gradient upon pullback with a 6 [place]ian catheter The left anterior descending artery Has mild 10% proximal luminal regularities The circumflex artery Nondominant normal The right coronary artery Large dominant with proximal and mid vessel 20% stenoses. Distally there are 10 and 20% stenosis. A large posterior descending artery has an ostial concentric 30 to 40% stenosis The MOCK ventriculogram reveals Not performed The left ventricular end-diastolic pressure Not measured IMPRESSION Moderate coronary artery disease involving left main artery as described above which is not currently hemodynamically significant Mild to moderate disease as described above PLAN 1. Rate control for atrial fibrillation 2. Anticoagulation for atrial fibrillation 3. Medical management for coronary artery disease including aggressive risk factor modification 4. Standard therapy for reduced ejection fraction Electronically signed by : Leo Hutton MD 06/02/2024 13:11:00
--- NOTE | 2024-06-02 04:57 | PC.NURSE ---
Patient remains A/O able to voice needs staff. Rested much better tonight throughout shift. Reviewed poc and d/c goals, patient v/u and has no new c/o. CHF education provided to patient and educated on new medications, purpose of, the importance of taking as prescribed, and s/s of CHF to report to MD early.
[2024-06-02] MEDS: IPRATROPIUM BROMIDE 0.5 MG/2.5ML SOLUTION IH (06:32)
[2024-06-02] MEDS: BUDESONIDE 0.5MG/2ML NEB 0.5 MG IH (06:32)
[2024-06-02] MEDS: LEVALBUTEROL 1.25MG/3ML NEB 1.25 MG IH (06:32)
[2024-06-02 07:05] LABS: Basophils # 0.1 K/mm3 (0-0.2); Basophils % 0.3 % (0.1-2.0); Eosinophils % 0.1 % (0.1-12.0); Hematocrit 55.4 % (42.0-52.0); Hemoglobin 17.6 g/dL (14.1-18.0); Lymphocytes # 1.4 K/mm3 (0.7-4.5); Lymphocytes % 8.3 % (10-50); Mean Corpuscular HGB Conc 31.7 g/dL (31.8-35.4); Mean Corpuscular Hemoglobin 28.6 pg (27.0-31.2); Mean Corpuscular Volume 90.2 fl (80-94); Mean Platelet Volume 8.7 fl (7.4-10.4); Monocytes # 1.4 K/mm3 (0.1-1.0); Neutrophils # 14.4 K/mm3 (1.8-7.8); Neutrophils % 83.2 % (37.0-80.0); Platelet Count 233 K/mm3 (142-424); Red Blood Count 6.14 M/mm3 (4.60-6.20); White Blood Count 17.3 K/mm3 (4.8-10.8)
[2024-06-02 07:24] LABS: Alanine Aminotransferase 63 U/L (12-78); Albumin Level 3.3 g/dl (3.5-5.0); Albumin/Globulin Ratio 1.2 (1.1-1.8); Alkaline Phosphatase 66 U/L (38-126); Anion Gap 7.6 mEq/L (5-15); Aspartate Amino Transferase 60 U/L (17-59); Bilirubin,Total 1.1 mg/dl (0.2-1.3); Blood Urea Nitrogen 32 mg/dl (9-20); Calcium 8.7 mg/dl (8.4-10.2); Carbon Dioxide 37 mmol/L (22.0-30.0); Chloride 98 mmol/L (98-107); Creatinine Clearance Estimated 94 mL/min (50-200); Estimated Glomerular Filt Rate 75 ml/min (>60); GFR (African American) 90 ML/MIN (>60); Globulin 2.8 g/dL (1.3-3.2); Glucose 71 mg/dl (74-100); Magnesium 2.3 mg/dl (1.6-2.3); Potassium 3.6 mmoL/L (3.5-5.1); Sodium 139 mmol/L (136-145); Total Protein,Serum 6.1 g/dl (6.3-8.2)
[2024-06-02 07:52] LABS: MANUAL DIFFERENTIAL MANUAL DIFFERENTIAL (MANUAL DIFF)
[2024-06-02] MEDS: CARVEDILOL 3.125MG TABLET 3.125 MG PO (08:15)
[2024-06-02] MEDS: SPIRONOLACTONE 25MG TABLET 25 MG PO ×2 (08:15→21:06)
[2024-06-02] MEDS: SACUBITRIL/VALSARTAN 24-26MG TABLET 1 EACH PO ×2 (08:15→21:05)
[2024-06-02] MEDS: EMPAGLIFLOZIN 10MG TABLET 10 MG PO (08:15)
[2024-06-02] MEDS: ASPIRIN EC 81MG TABLET 81 MG PO (08:15)
[2024-06-02] MEDS: FUROSEMIDE 100MG/10ML VIAL 80 MG IV ×2 (08:15→15:05)
[2024-06-02] MEDS: predniSONE 20MG TAB 40 MG PO (08:15)
--- NOTE | 2024-06-02 08:42 | P.PN_ITS ---
Subjective *Date: 06/02/24 *Time: 14:11 Interval history: Patient feeling little better today did erasing well. Stable on 3 L oxygen. Has put out 4 L in the past 24 hours. Denies any chest pain, nausea, vomiting. States shortness of breath is improving. Still has swelling in his legs. Kidney function and electrolytes stable this morning. Medical Exam Vital signs and Labs for Last 24 Hours: Vital Signs Temp Pulse Pulse Resp BP Pulse Ox O2 Del Method 06/02/24 08:00 105 H 20 116/74 92 L Nasal Cannula 06/02/24 06:53 Nasal Cannula 06/02/24 06:31 98 H 06/02/24 06:31 103 H 06/02/24 06:31 91 L Nasal Cannula 06/02/24 06:00 107 H 20 125/83 90 L Nasal Cannula 06/02/24 05:00 Nasal Cannula 06/02/24 04:00 120 H 06/02/24 04:00 97.8 F 06/02/24 04:00 105 H 22 112/62 90 L Nasal Cannula 06/02/24 03:00 Nasal Cannula 06/02/24 02:00 78 20 112/62 90 L Nasal Cannula 06/02/24 00:58 Nasal Cannula 06/02/24 00:00 110 H 06/02/24 00:00 97.8 F 06/02/24 00:00 98 H 20 95/58 L 90 L Nasal Cannula 06/02/24 00:00 88 L Nasal Cannula 06/01/24 23:11 113 H 06/01/24 23:11 114 H 06/01/24 23:11 90 L Nasal Cannula 06/01/24 23:00 Nasal Cannula 06/01/24 22:00 123 H 20 93/52 L 88 L Nasal Cannula 06/01/24 21:00 Nasal Cannula 06/01/24 20:25 94 L Nasal Cannula 06/01/24 20:00 100 H 06/01/24 20:00 97.9 F 118 H 20 99/48 L 92 L Nasal Cannula 06/01/24 18:39 Nasal Cannula 06/01/24 18:11 117 H 06/01/24 18:11 105 H 06/01/24 18:11 90 L Nasal Cannula 06/01/24 18:00 108 H 18 99/53 L 92 L Nasal Cannula 06/01/24 17:00 Nasal Cannula 06/01/24 16:00 110 H 06/01/24 16:00 101 H 20 97/59 L 91 L Nasal Cannula 06/01/24 16:00 97.8 F 06/01/24 16:00 Nasal Cannula 06/01/24 15:56 91 L Nasal Cannula 06/01/24 14:59 Nasal Cannula 06/01/24 14:00 105 H 20 105/47 L 94 L Nasal Cannula 06/01/24 13:00 Nasal Cannula 06/01/24 12:00 90 06/01/24 12:00 105 H 18 94/70 L 95 Nasal Cannula 06/01/24 11:45 97.8 F 06/01/24 11:44 83 06/01/24 11:44 80 06/01/24 11:00 Nasal Cannula 06/01/24 10:45 86 L Nasal Cannula 06/01/24 10:00 96 H 20 109/63 L 93 L Nasal Cannula 06/01/24 09:36 117 H 06/01/24 09:36 117 H 06/01/24 09:36 95 Nasal Cannula 06/01/24 09:00 Nasal Cannula 06/01/24 09:00 Nasal Cannula O2 Flow Rate 06/02/24 08:00 2 06/02/24 06:53 2 06/02/24 06:31 06/02/24 06:31 06/02/24 06:31 2 06/02/24 06:00 2 06/02/24 05:00 2 06/02/24 04:00 06/02/24 04:00 06/02/24 04:00 2 06/02/24 03:00 2 06/02/24 02:00 2 06/02/24 00:58 2 06/02/24 00:00 06/02/24 00:00 06/02/24 00:00 2 06/02/24 00:00 2 06/01/24 23:11 06/01/24 23:11 06/01/24 23:11 2 06/01/24 23:00 2 06/01/24 22:00 2 06/01/24 21:00 2 06/01/24 20:25 2 06/01/24 20:00 06/01/24 20:00 2 06/01/24 18:39 2 06/01/24 18:11 06/01/24 18:11 06/01/24 18:11 2 06/01/24 18:00 2 06/01/24 17:00 2 06/01/24 16:00 06/01/24 16:00 2 06/01/24 16:00 06/01/24 16:00 2 06/01/24 15:56 2 06/01/24 14:59 2 06/01/24 14:00 2 06/01/24 13:00 2 06/01/24 12:00 06/01/24 12:00 2 06/01/24 11:45 06/01/24 11:44 06/01/24 11:44 06/01/24 11:00 2 06/01/24 10:45 2 06/01/24 10:00 2 06/01/24 09:36 06/01/24 09:36 06/01/24 09:36 4 06/01/24 09:00 4 06/01/24 09:00 4 Intake and Output 06/01/24 06/02/24 06/02/24 23:59 07:59 15:59 Intake Total 540 / 548.75 Output Total 0 / 4350 1000 / 1000 Balance 540 / -3801.25 -1000 / -1000 Intake: Intake, Oral Amount 540 / 540 Output: Output, Urine Amount 0 / 4350 1000 / 1000 Other: Number of Unmeasured Voids 1 0 Weight 91.081 kg Patient Weight 06/02/24 23:59 Weight 91.081 kg Laboratory Results - last 24 hr 05/31/24 11:27: Hepatitis C Antibody Non reactive 06/01/24 05:19: Total Counted 100, Neutrophils % (Manual) 87 H, Lymphocytes % (Manual) 10, Monocytes % (Manual) 3, Platelet Estimate Normal, RBC Morphology Normal, Hemoglobin A1c 5.4 06/02/24 05:47: WBC 17.3 H, RBC 6.14, Hgb 17.6, Hct 55.4 H, MCV 90.2, MCH 28.6, MCHC 31.7 L, RDW 15.0, Plt Count 233, MPV 8.7, Neut % (Auto) 83.2 H, Lymph % (Auto) 8.3 L, [place] % (Auto) 8.0, Eos % (Auto) 0.1, Baso % (Auto) 0.3, Neut # (Auto) 14.4 H, Lymph # (Auto) 1.4, [place] # (Auto) 1.4 H, Eos # (Auto) 0.0, Baso # (Auto) 0.1, Sodium 139, Potassium 3.6, Chloride 98, Carbon Dioxide 37 H, Anion Gap 7.6, BUN 32 H, Creatinine 1.00, Estimated Creat Clear 94, Estimated GFR 75, Est GFR ( Amer) 90 D, Glucose 71 L, Calcium 8.7, Magnesium 2.3, Total Bilirubin 1.1, AST 60 H, ALT 63, Alkaline Phosphatase 66, Total Protein 6.1 L, Albumin 3.3 L, Globulin 2.8, Albumin/Globulin Ratio 1.2 I & O for Labs for Last 24 Hours: Intake & Output 05/30/24 05/31/24 06/01/24 06/02/24 22:59 23:59 23:59 23:59 Intake Total 944.934 / 944.934 548.75 / 548.75 Output Total 2125 / 2125 3700 / 4350 1000 / 1000 Balance -1180.066 / -1180.066 -3151.25 / -3801.25 -1000 / -1000 Weight 108.097 kg 108.097 kg 91.081 kg Microbiology Reports for the Last 24 Hours: Microbiology 05/31/24 11:27 Blood Blood Culture - Preliminary NO GROWTH AFTER 24 HOURS 05/31/24 12:36 Blood Blood Culture - Preliminary NO GROWTH AFTER 24 HOURS 05/31/24 19:50 Sputum - Expectorated Sputum Gram Stain - Preliminary 05/31/24 19:50 Sputum - Expectorated Sputum Sputum Culture - Preliminary Constitutional: Present no acute distress, obese and chronically ill appearing Head: Present atraumatic and normocephalic ENT: Present normal exam Respiratory: Present normal respiratory effort; Absent rhonchi, wheezes or crackles Cardiac: Present Irregularly Regular GI: Present soft and normal bowel sounds; Absent distention or tenderness Extremities: Present normal inspection, full ROM and edema (2+ to knees) Skin: Present intact; Absent erythema Neuro: Present Grossly Intact, alert, awake, oriented x 3 and moves all extremities Assessment and Plan *Assessment and plan (1) Atrial fibrillation with RVR: Status: Acute Category: Medical Code(s): I48.91 - Unspecified atrial fibrillation (2) Acute hypoxemic respiratory failure: Status: Acute Category: Medical Code(s): J96.01 - Acute respiratory failure with hypoxia (3) Atrial fibrillation, new onset: Status: Acute Category: Medical Code(s): I48.91 - Unspecified atrial fibrillation (4) New onset of congestive heart failure: Status: Acute Category: Medical Code(s): I50.9 - Heart failure, unspecified (5) COPD exacerbation: Status: Acute Category: Medical Code(s): J44.1 - Chronic obstructive pulmonary disease with (acute) exacerbation Plan Ky Hodge is a 64-year-old male with a medical history significant for tobacco use disorder, COPD presents with progressive shortness of breath over the last several days. He states he has had this on and off for the past years, but has been worse recently. Denies fever/chills, productive cough (baseline dry cough), nausea/vomiting, abdominal pain, constipation/diarrhea. No recent changes in medications. He states he does not use any inhalers for his COPD. He has been smoking apparently since grade 4. On arrival, patient was saturating at 87 on room air. He had diminished air movements and was given 3 DuoNebs and IV Lasix 60 mg, and developed A-fib RVR with heart rate up to 140s. Administered IV Lopressor 5 mg without improvement. Workup in the ED significant for WBC 12.2, VBG with compensated chronic CO2 retention, troponin 0.06, proBNP 15,200. EKG showed A-fib RVR. CXR suggestive of right lower lobe pneumonia. Case discussed with ED provider and decision was made to admit patient for acute hypoxic respiratory failure 2/2 COPD exacerbation, new onset heart failure, and A-fib RVR. Showing some improvement with aggressive diuresis . Plan for left heart cath today. Further management pending cardiology recommendations. Problems addressed as follows: #Acute hypoxic respiratory failure ? Combination of COPD exacerbation, community-acquired pneumonia. See separate problems. #A-fib with RVR #New onset systolic heart failure exacerbation #Pulmonary edema #Elevated troponins ? A-fib, HFrEF new diagnoses. In the setting of community-acquired pneumonia, new heart failure. ? Heart rate up to 140s on admission. Minimal response to IV Lopressor 5 mg in the ED. ?Left heart cath performed today, mild CAD. Will need LifeVest due to severe reduction in ejection fraction. - Increase carvedilol to 6.25 mg twice daily, resume Eliquis. Continue empagliflozin 10 mg daily, Lasix 80 mg IV twice daily, and Entresto 24/26 mg 1 tablet twice daily - Kidney function stable with BUN 33, creatinine 1.0. ? Aspirin 81mg, atorvastatin 40mg started ? Echo showing EF 30%. BNP still severely elevated at 15,000, continue diuresis ? Follow-up serial troponins. --4 L in the past 24 hours. Repeat CBC, CMP, magnesium ordered for the morning #Acute COPD exacerbation #Community-acquired pneumonia #Sepsis ?White count bumped to 17, suspect secondary to steroids vs infection - Pulmonology consulted to establish care for COPD. Discussed case today, Continue Xopenex and ipratropium every 6 hours. Continue budesonide twice daily. Continue Trelegy 100 inhaler. Wean oxygen as tolerated, goal sats greater 90%. Continue ceftriaxone and azithromycin. Wean to cefdinir at discharge to complete total of 5 days. Continue prednisone for total of 5 days. #Severe onychomycosis ? Podiatry consulted, nails trimmed today. Full code DVT prophylaxis: Therapeutic Lovenox Cardiac diet
[2024-06-02 08:53] LABS: Lymphocytes % 8 % (10-50); Monocytes % 2 % (2-9); Neutrophils % 90 % (42-76); Platelet Estimate Normal; RBC Morphology Normal; Total Cells Counted 100
--- NOTE | 2024-06-02 09:46 | EXP.PULM.PN ---
Subjective *Date: 06/02/24 *Time: 09:49 Interval history: No acute respiratory vents overnight. Patient denies any new respiratory complaints. Pulmonology Exam Inpatient Vital signs and Labs for Last 24 Hours: Temp Pulse Resp BP Pulse Ox O2 Del Method O2 Flow Rate 97.5 F L 105 H 20 116/74 92 L Room Air 2 06/02/24 09:25 06/02/24 08:00 06/02/24 08:00 06/02/24 08:00 06/02/24 08:00 06/02/24 09:05 06/02/24 08:00 FiO2 40 06/01/24 06:17 Laboratory Results - last 24 hr 06/02/24 05:47: WBC 17.3 H, RBC 6.14, Hgb 17.6, Hct 55.4 H, MCV 90.2, MCH 28.6, MCHC 31.7 L, RDW 15.0, Plt Count 233, MPV 8.7, Neut % (Auto) 83.2 H, Lymph % (Auto) 8.3 L, [place] % (Auto) 8.0, Eos % (Auto) 0.1, Baso % (Auto) 0.3, Neut # (Auto) 14.4 H, Lymph # (Auto) 1.4, [place] # (Auto) 1.4 H, Eos # (Auto) 0.0, Baso # (Auto) 0.1, Total Counted 100, Neutrophils % (Manual) 90 H, Lymphocytes % (Manual) 8 L, Monocytes % (Manual) 2, Platelet Estimate Normal, RBC Morphology Normal, Sodium 139, Potassium 3.6, Chloride 98, Carbon Dioxide 37 H, Anion Gap 7.6, BUN 32 H, Creatinine 1.00, Estimated Creat Clear 94, Estimated GFR 75, Est GFR ( Amer) 90 D, Glucose 71 L, Calcium 8.7, Magnesium 2.3, Total Bilirubin 1.1, AST 60 H, ALT 63, Alkaline Phosphatase 66, Total Protein 6.1 L, Albumin 3.3 L, Globulin 2.8, Albumin/Globulin Ratio 1.2 Temp Pulse Resp BP Pulse Ox O2 Del Method O2 Flow Rate 97.6 F 129 H 22 107/73 L 93 L Nasal Cannula 4 06/01/24 07:39 06/01/24 06:17 06/01/24 06:00 06/01/24 06:00 06/01/24 08:41 06/01/24 08:41 06/01/24 08:41 FiO2 40 06/01/24 06:17 Laboratory Results - last 24 hr 05/31/24 11:27: WBC 12.2 H, RBC 6.06, Hgb 17.2, Hct 54.8 H, MCV 90.4, MCH 28.4, MCHC 31.5 L, RDW 15.0, Plt Count 265, MPV 8.5, Neut % (Auto) 82.0 H, Lymph % (Auto) 10.9, [place] % (Auto) 6.0, Eos % (Auto) 0.5, Baso % (Auto) 0.5, Neut # (Auto) 10.0 H, Lymph # (Auto) 1.3, [place] # (Auto) 0.7, Eos # (Auto) 0.1, Baso # (Auto) 0.1, PT 14.9 H, INR 1.37 H, APTT 25.9, Sodium 141, Potassium 4.3, Chloride 103, Carbon Dioxide 32 H, Anion Gap 10.3, BUN 29 H, Creatinine 1.10, Estimated Creat Clear 99, Estimated GFR 67, Est GFR ( Amer) 81, Glucose 113 H, Calcium 9.3, Total Bilirubin 1.2, AST 88 H, ALT 101 H, Alkaline Phosphatase 70, Troponin I 0.07 H, NT-Pro-B Natriuret Pep 37691 H, Total Protein 7.0, Albumin 3.8, Globulin 3.2, Albumin/Globulin Ratio 1.2, Procalcitonin 0.121, HIV 1&2 Antibody Rapid Nonreactive 05/31/24 11:44: VBG pH 7.35, VBG pCO2 57.1 H, VBG pO2 37.4, VBG HCO3 30.5 H, VBG Total CO2 32.3 H, VBG O2 Saturation 70.9 H, VBG Base Excess 4.9 H, VBG Lactic Acid 2.3 H 05/31/24 15:08: Troponin I 0.06 H 05/31/24 16:06: Lactate 1.1 05/31/24 18:15: Troponin I 0.06 H 06/01/24 05:19: WBC 15.8 H D, RBC 5.64, Hgb 16.2, Hct 50.4, MCV 89.4, MCH 28.8, MCHC 32.2, RDW 15.1, Plt Count 237, MPV 8.5, Neut % (Auto) 88.2 H, Lymph % (Auto) 5.2 L, [place] % (Auto) 6.5, Eos % (Auto) 0.0 L, Baso % (Auto) 0.2, Neut # (Auto) 13.9 H, Lymph # (Auto) 0.8, [place] # (Auto) 1.0, Eos # (Auto) 0.0, Baso # (Auto) 0.0, Total Counted 100, Neutrophils % (Manual) 87 H, Lymphocytes % (Manual) 10, Monocytes % (Manual) 3, Platelet Estimate Normal, RBC Morphology Normal, Sodium 137, Potassium 3.8, Chloride 99, Carbon Dioxide 38 H, Anion Gap 3.8 L, BUN 31 H, Creatinine 1.20, Estimated Creat Clear 93, Estimated GFR 61, Est GFR ( Amer) 73, Glucose 80 D, Hemoglobin A1c 5.4, Calcium 8.9, Magnesium 2.3, Total Bilirubin 1.0, AST 59 D, ALT 79 H, Alkaline Phosphatase 63, Total Protein 6.2 L, Albumin 3.5, Globulin 2.7, Albumin/Globulin Ratio 1.3 I & O for Labs for Last 24 Hours: Intake & Output 05/30/24 05/31/24 06/01/24 06/02/24 22:59 23:59 23:59 23:59 Intake Total 944.934 / 944.934 548.75 / 548.75 Output Total 2124 3700 / 4350 1000 / 1000 Balance -1180.066 / -1180.066 -3151.25 / -3801.25 -1000 / -1000 Weight 238 lb 5 oz 238 lb 5.009 oz 200 lb 12.8 oz Intake & Output 05/29/24 05/30/24 05/31/24 06/01/24 23:59 22:59 23:59 23:59 Intake Total 944.934 / 944.934 8.75 / 8.75 Output Total 2124 0 / 0 Balance -1180.066 / -1180.066 8.75 / 8.75 Weight 238 lb 5 oz 238 lb 5.009 oz Microbiology Reports for the Last 24 Hours: Microbiology 05/31/24 19:50 Sputum - Expectorated Sputum Gram Stain - Final 05/31/24 19:50 Sputum - Expectorated Sputum Sputum Culture - Preliminary 05/31/24 11:27 Blood Blood Culture - Preliminary NO GROWTH AFTER 24 HOURS 05/31/24 12:36 Blood Blood Culture - Preliminary NO GROWTH AFTER 24 HOURS Microbiology 05/31/24 19:50 Sputum - Expectorated Sputum Gram Stain - Preliminary Constitutional: Present moderate distress Head: Present normocephalic and atraumatic ENT: Present normal exam, normal oropharynx and mucous membranes moist Neck: Present normal inspection and full ROM Respiratory: Present prolonged expiratory phase, respiratory distress and able to speak in complete sentences; Absent wheezes Cardiac: Present S1/S2, Tachycardia and radial pulses present GI: Present soft and distention; Absent tenderness or guarding Skin: Present intact; Absent cyanosis or jaundice Neuro: Present alert, awake and oriented x 3 Extremities: Present normal inspection; Absent clubbing or cyanosis Psychiatric: Present normal affect and cooperative Assessment and Plan *Assessment and plan (1) COPD exacerbation: Status: Acute Category: Medical Code(s): J44.1 - Chronic obstructive pulmonary disease with (acute) exacerbation (2) Acute respiratory failure with hypoxia and hypercapnia: Status: Acute Category: Medical Code(s): J96.01 - Acute respiratory failure with hypoxia; J96.02 - Acute respiratory failure with hypercapnia Plan Mr. Hodge is a 64-year-old male with reported history of tobacco abuse COPD presented to ER with worsening respiratory distress and pulmonary was called for further evaluation and management. Upon further questioning he is a current smoker, greater than 32-[id number] smoking history but not using any inhalers or nebulizer therapies at baseline. Progressively worsening respiratory failure worsening cough productive phlegm and wheezing. CTA upon admission, no evidence of pulmonary embolism but upper lobe predominant diffuse centrilobular emphysematous changes. No dense consolidative/airspace changes noted. Neutrophilic predominant leukocytosis. Afebrile. Hemodynamically stable. Venous blood gas upon admission mild hypercarbic respiratory failure. Currently being managed for COPD exacerbation with nebulization therapies and steroids. Blood and sputum cultures pending. On initial examination patient appeared to be in moderate respiratory distress. No wheezing noted condition immediately after receiving nebulization therapies. On 4 L nasal cannula saturating 98%. Patient also being managed for CHF exacerbation and A-fib RVR. Interval update: No acute respiratory vents overnight. Improving oxygen requirements. Prelim sputum staining gram-positive cocci and bacilli. No significant wheezing noted on auscultation. Plan: Trelegy 100 inhaler along with DuoNebs 4 times daily as needed Continue oxygen supplementation to maintain O2 saturation goal of 90% and Above. not using oxygen supplementation at baseline. Continue ceftriaxone azithromycin pending sputum culture results. Antibiotics can be weaned to cefdinir to complete a total of 5-day course upon discharge Continue prednisone 40 mg daily to complete a total of 5-day course # Thank you for involving pulmonary in this patient care. Will continue to follow.
[2024-06-02 11:38] LABS: Blood Urea Nitrogen 32 mg/dl (9-20); Calcium 8.8 mg/dl (8.4-10.2); Chloride 94 mmol/L (98-107); Creatinine Clearance Estimated 94 mL/min (50-200); Estimated Glomerular Filt Rate 75 ml/min (>60); GFR (African American) 90 ML/MIN (>60); Glucose 91 mg/dl (74-100); Potassium 3.7 mmoL/L (3.5-5.1); Sodium 141 mmol/L (136-145)
--- NOTE | 2024-06-02 11:41 | EXP.CARD.PN ---
Subjective Subjective Date: 06/02/24 Time: 11:42 Principal diagnosis: HFrEF, A. fib Interval history: 64-year-old white female sitting in bedside chair in no acute distress. Lower extremity edema slightly improved. Patient feels like he is able to lie flat today therefore we will proceed with left heart catheterization to further evaluate his cardiomyopathy. Telemetry shows continued A-fib with rates around 100 bpm. Exam Data for Last 24 hours Vital signs and Labs for Last 24 Hours: Temp Pulse Resp BP Pulse Ox O2 Del Method O2 Flow Rate 97.5 F L 98 H 18 103/80 L 92 L Room Air 2 06/02/24 09:25 06/02/24 10:00 06/02/24 10:00 06/02/24 10:00 06/02/24 10:00 06/02/24 11:00 06/02/24 08:00 FiO2 40 06/01/24 06:17 Laboratory Results - last 24 hr 06/02/24 05:47: WBC 17.3 H, RBC 6.14, Hgb 17.6, Hct 55.4 H, MCV 90.2, MCH 28.6, MCHC 31.7 L, RDW 15.0, Plt Count 233, MPV 8.7, Neut % (Auto) 83.2 H, Lymph % (Auto) 8.3 L, [place] % (Auto) 8.0, Eos % (Auto) 0.1, Baso % (Auto) 0.3, Neut # (Auto) 14.4 H, Lymph # (Auto) 1.4, [place] # (Auto) 1.4 H, Eos # (Auto) 0.0, Baso # (Auto) 0.1, Total Counted 100, Neutrophils % (Manual) 90 H, Lymphocytes % (Manual) 8 L, Monocytes % (Manual) 2, Platelet Estimate Normal, RBC Morphology Normal, Sodium 139, Potassium 3.6, Chloride 98, Carbon Dioxide 37 H, Anion Gap 7.6, BUN 32 H, Creatinine 1.00, Estimated Creat Clear 94, Estimated GFR 75, Est GFR ( Amer) 90 D, Glucose 71 L, Calcium 8.7, Magnesium 2.3, Total Bilirubin 1.1, AST 60 H, ALT 63, Alkaline Phosphatase 66, Total Protein 6.1 L, Albumin 3.3 L, Globulin 2.8, Albumin/Globulin Ratio 1.2 I & O for Last 24 hours: Intake & Output 05/30/24 05/31/24 06/01/24 06/02/24 10:59 11:59 11:59 11:59 Intake Total 953.684 / 953.684 540 / 540 Output Total 4325 / 4325 3350 / 3350 Balance -3371.316 / -3371.316 -2810 / -2810 Weight 234 lb 238 lb 5.009 oz 200 lb 12.8 oz Microbiology Reports for the Last 24 Hours: Microbiology 05/31/24 19:50 Sputum - Expectorated Sputum Gram Stain - Final 05/31/24 19:50 Sputum - Expectorated Sputum Sputum Culture - Preliminary 05/31/24 11:27 Blood Blood Culture - Preliminary NO GROWTH AFTER 24 HOURS 05/31/24 12:36 Blood Blood Culture - Preliminary NO GROWTH AFTER 24 HOURS Constitutional Constitutional: no acute distress *Routine Respiratory Exam Respiratory: Present crackles *Routine Cardiovascular Exam Cardiovascular: Present irregularly irregular *Routine Extremities Exam Extremities: Present edema *Routine Neurological Exam Neurological: Present alert, oriented X3 and CN II-XII intact Progress Note: A&P Assessment and plan (1) COPD exacerbation: Status: Acute (2) Acute respiratory failure with hypoxia and hypercapnia: Status: Acute (3) Atrial fibrillation with RVR: Status: Acute (4) Acute hypoxemic respiratory failure: Status: Acute (5) New onset of congestive heart failure: Status: Acute (6) HFrEF (heart failure with reduced ejection fraction): Status: Acute (7) Leg edema: Status: Acute (8) Elevated troponin: Status: Acute Assessment and Plan Assessment and Plan for All Diagnoses:: 1. A. fib with RVR, new diagnosis -CHADS-VASC score of 3 (CHF, age, vascular disease) -continue lovenox until after cardiac cath -start coreg for rate control and cardiomyopathy 2. HFrEF with BNP 62999 and transaminitis -Echo EF 25% -continue IV lasix -add spironolactone and entresto -add Jardiance 3. Emphysema with continued tobacco use -RLL pneumonia on CXR, started on Azithromycin and prednisone -Hypoxia, improved on nasal oxygen 4. Elevated INR 1.37 without anticoagulation 5. Transaminitis -improving -likely due to vascular congestion 6. Dyslipidemia -statin started 7. Mildly Elevated troponins -likely due to strain from CHF but cannot rule out [place] in light of cardiomyopathy -will need C -continue ASA 8. LE edema -HOLLY normal -venous doppler negative for DVT Continue diuresis and rate control Start GDMT for HFrEF/Cardiomyopathy Cardiac cath today shows mild to mod CAD of left main, LAD and RCA. LifeVest ordered. Will start Eliquis 5 mg twice daily Will increase carvedilol to 6.25 mg twice daily anticipate home tomorrow if continues to do well.
[2024-06-02 11:46] LABS: Anion Gap 12.7 mEq/L (5-15); Carbon Dioxide 38 mmol/L (22.0-30.0)
[2024-06-02] MEDS: HEPARIN 1,000 UNITS/ML 10ML VIAL (CATH LAB) 10000 UNIT IV (12:29)
[2024-06-02] MEDS: VERAPAMIL 2.5MG/ML 2ML VIAL 2.5 MG IV (12:29)
[2024-06-02] MEDS: diphenhydrAMINE 50MG/ML VIAL 50 MG IV (12:29)
[2024-06-02] MEDS: HEPARIN 1,000 UNITS/500ML NS (CATH LAB) 3000 UNIT IV (12:30)
[2024-06-02] MEDS: 0.9 % SODIUM CHLORIDE 500 ML 25 ML IV (12:30)
[2024-06-02] MEDS: LIDOCAINE 1% 10ML MDV 20 ML IJ (12:30)
[2024-06-02] MEDS: FENTANYL 100MCG/2ML VIAL 50 MCG IV (12:31)
[2024-06-02] MEDS: MIDAZOLAM HCL 1MG/ML 5ML VIAL 1 MG IV (12:31)
[2024-06-02] MEDS: NITROGLYCERIN 800MCG/8ML SYR (CATH LAB) 800 MCG IA (12:31)
[2024-06-02] MEDS: IOPAMIDOL-370 (76%);100ML BOTTLE 60 ML IV (13:46)
[2024-06-02] MEDS: AZITHROMYCIN 500 MG in 0.9 % SODIUM CHLORIDE 250 ML 250 MG IV (15:05)
--- NOTE | 2024-06-02 18:06 | PC.NURSE ---
SINCE TAKING OVER CARE FOR PATIENT AROUND 1400, PATIENT HAS DONE WELL. RIGHT RADIAL CATH SITE NOTED. PRESSURE DRESSING IN PLACE, CDI. PATIENT HAS BEEN UP TO THE CHAIR WITH 1-2 ASSIST. TOLERATES WELL. BLE ELEVATED TOLERATED D/T +3 PITTING EDEMA. PURE WICK IN PLACE DRAINING LARGE AMOUNTS OF LIGHT YELLOW URINE. PATIENT HAS FELT THE NEED TO HAVE A BM BUT HAS BEEN UNSUCCESSFUL THUS FAR. TOLERATING DIET WELL. HAS HAD NO NEEDS OR C/O. VSS.
[2024-06-02] MEDS: APIXABAN 5MG TABLET 5 MG PO (21:05)
[2024-06-02] MEDS: ATORVASTATIN 40MG TABLET 40 MG PO (21:06)
[2024-06-02] MEDS: CARVEDILOL 6.25MG TABLET 6.25 MG PO (21:49)
[2024-06-03] VITALS: BP 104/65; PULSE 110; PULSE 86; RESP 18; TEMP 36.4; O2SAT 90
--- NOTE | 2024-06-03 01:08 | PC.NURSE ---
0100: lab called with positive blood culture results. Aman GAMBLE notified.
--- NOTE | 2024-06-03 01:21 | P.EN_ITS ---
problm: Nursing notified me that the blood culture came back positive for gram- positive cocci in pairs and chains, patient presently on azithromycin, with slowly increasing white count Exam patient in no acute distress off oxygen his saturation drops into the low 80s still. No fever with O2 on between 2 to 3 L saturations into the low to mid 90s patient is having no respiratory distress. Plan : Will give 2 g of Rocephin IV now, continue the azithromycin. Update daytime provider that we can decide whether or not vancomycin needs to be added or vancomycin another antibiotic at. Believe this infection is the right lower lobe pneumonia but now with positive blood culture, patient is stable at present time.
[2024-06-03] MEDS: CEFTRIAXONE SODIUM 2 GM in 0.9 % SODIUM CHLORIDE 100 ML IV (02:11)
[2024-06-03 03:28] VITALS: PULSE 88
[2024-06-03 04:00] VITALS: BP 133/81; PULSE 100; PULSE 81; RESP 14; TEMP 36.4; O2SAT 90; BMI 28.7
[2024-06-03] MEDS: FLUTICASONE/UMECLIDIN/VILANTER 100/62.5/25MCG INHALER 1 PUFF IH (06:15)
[2024-06-03 06:16] VITALS: O2SAT 88
[2024-06-03 07:05] LABS: Basophils % 0.2 % (0.1-2.0); Eosinophils % 0.1 % (0.1-12.0); Hemoglobin 16.4 g/dL (14.1-18.0); Lymphocytes # 1.5 K/mm3 (0.7-4.5); Lymphocytes % 11.1 % (10-50); Mean Corpuscular HGB Conc 31.6 g/dL (31.8-35.4); Mean Corpuscular Hemoglobin 28.5 pg (27.0-31.2); Mean Corpuscular Volume 90.3 fl (80-94); Mean Platelet Volume 8.6 fl (7.4-10.4); Monocytes # 1.1 K/mm3 (0.1-1.0); Monocytes % 7.7 % (1.7-9.3); Neutrophils # 11.3 K/mm3 (1.8-7.8); Platelet Count 204 K/mm3 (142-424); Red Blood Count 5.76 M/mm3 (4.60-6.20); Red Cell Distribution Width 14.9 % (11.5-17.5); White Blood Count 13.9 K/mm3 (4.8-10.8)
[2024-06-03 07:09] LABS: Alanine Aminotransferase 49 U/L (12-78); Albumin Level 2.8 g/dl (3.5-5.0); Albumin/Globulin Ratio 1.2 (1.1-1.8); Alkaline Phosphatase 52 U/L (38-126); Aspartate Amino Transferase 40 U/L (17-59); Bilirubin,Total 0.8 mg/dl (0.2-1.3); Blood Urea Nitrogen 34 mg/dl (9-20); Calcium 8.3 mg/dl (8.4-10.2); Chloride 96 mmol/L (98-107); Creatinine Clearance Estimated 94 mL/min (50-200); Estimated Glomerular Filt Rate 75 ml/min (>60); GFR (African American) 90 ML/MIN (>60); Globulin 2.4 g/dL (1.3-3.2); Glucose 74 mg/dl (74-100); Magnesium 2.2 mg/dl (1.6-2.3); Potassium 3.4 mmoL/L (3.5-5.1); Sodium 140 mmol/L (136-145); Total Protein,Serum 5.2 g/dl (6.3-8.2)
[2024-06-03 07:17] LABS: Anion Gap 8.4 mEq/L (5-15); Carbon Dioxide 39 mmol/L (22.0-30.0)
--- NOTE | 2024-06-03 07:25 | PC.NURSE ---
0700: Pt. alert and orientated x 4. Pt. was awake a lot overnight. No chest pain. right wrist dressing clean, dry, intact. vital signs stable. Pt. attempted to get out of bed several times. Bed alrm on. BLE edematous.
[2024-06-03 07:37] VITALS: BP 104/69; PULSE 95; RESP 22; TEMP 36.6; O2SAT 91
--- NOTE | 2024-06-03 09:01 | EXP.PHA.PN ---
Subjective *Date: 06/03/24 *Time: 09:01 Medical Exam Vital signs and Labs for Last 24 Hours: Vital Signs Temp Pulse Pulse Resp BP Pulse Ox O2 Del Method 06/03/24 07:37 97.9 F 95 H 22 104/69 L 91 L Nasal Cannula 06/03/24 07:00 Nasal Cannula 06/03/24 06:16 88 L Nasal Cannula 06/03/24 05:00 Nasal Cannula 06/03/24 04:00 97.5 F L 81 14 133/81 90 L Nasal Cannula 06/03/24 04:00 100 H 06/03/24 03:28 88 06/03/24 03:00 Nasal Cannula 06/03/24 01:00 Nasal Cannula 06/03/24 00:00 110 H 06/03/24 00:00 97.5 F L 86 18 104/65 L 90 L Nasal Cannula 06/02/24 23:00 Nasal Cannula 06/02/24 21:00 93 L Nasal Cannula 06/02/24 21:00 Nasal Cannula 06/02/24 20:30 107 H 18 97/51 L 92 L Nasal Cannula 06/02/24 20:00 Nasal Cannula 06/02/24 20:00 97.9 F 119 H 16 106/64 L 92 L Nasal Cannula 06/02/24 19:30 100 H 18 105/50 L 92 L Nasal Cannula 06/02/24 18:30 Nasal Cannula 06/02/24 18:30 90 18 135/74 93 L Nasal Cannula 06/02/24 17:30 116 H 18 111/84 92 L Nasal Cannula 06/02/24 17:00 Nasal Cannula 06/02/24 16:30 94 H 18 118/63 91 L Nasal Cannula 06/02/24 16:00 110 H 06/02/24 16:00 89 18 100/58 L 90 L Nasal Cannula 06/02/24 15:30 127 H 18 90/59 L 90 L Nasal Cannula 06/02/24 15:00 110 H 18 142/73 H 90 L Nasal Cannula 06/02/24 15:00 Nasal Cannula 06/02/24 14:30 99 H 18 139/96 H 93 L Nasal Cannula 06/02/24 14:15 118 H 18 134/79 90 L Nasal Cannula 06/02/24 14:00 115 H 20 133/84 93 L Nasal Cannula 06/02/24 13:45 116 H 20 129/107 H 90 L Nasal Cannula 06/02/24 13:30 109 H 18 132/47 L 96 06/02/24 13:25 109 H 20 115/92 H 95 06/02/24 13:20 115 H 20 97/70 L 90 L Nasal Cannula 06/02/24 13:15 112 H 118 H 20 115/68 90 L Nasal Cannula 06/02/24 12:00 120 H 06/02/24 12:00 87 18 119/70 92 L Room Air 06/02/24 11:00 Room Air 06/02/24 10:00 98 H 18 103/80 L 92 L Room Air 06/02/24 09:25 97.5 F L 06/02/24 09:05 Room Air O2 Flow Rate 06/03/24 07:37 3 06/03/24 07:00 3 06/03/24 06:16 3 06/03/24 05:00 3 06/03/24 04:00 3 06/03/24 04:00 06/03/24 03:28 06/03/24 03:00 2 06/03/24 01:00 2 06/03/24 00:00 06/03/24 00:00 3 06/02/24 23:00 3 06/02/24 21:00 3 06/02/24 21:00 3 06/02/24 20:30 3 06/02/24 20:00 3 06/02/24 20:00 3 06/02/24 19:30 3 06/02/24 18:30 3 06/02/24 18:30 3 06/02/24 17:30 3 06/02/24 17:00 3 06/02/24 16:30 3 06/02/24 16:00 06/02/24 16:00 3 06/02/24 15:30 3 06/02/24 15:00 3 06/02/24 15:00 3 06/02/24 14:30 2 06/02/24 14:15 2 06/02/24 14:00 2 06/02/24 13:45 2 06/02/24 13:30 06/02/24 13:25 06/02/24 13:20 3 06/02/24 13:15 3 06/02/24 12:00 06/02/24 12:00 06/02/24 11:00 11/06/24 10:00 06/02/24 09:25 06/02/24 09:05 Intake and Output 06/02/24 06/03/24 06/03/24 23:59 07:59 15:59 Intake Total 360 / 840 940 / 940 Output Total 375 / 2945 775 / 775 Balance -15 165 / 165 Intake: Intake, Oral Amount 360 / 840 840 / 840 Intake, Total IV Amount 100 / 100 Ceftriaxone Sodium 2 gm In 0.9 100 / 100 % Sodium Chloride 100 ml @ 200 mls/hr IV ONCE ONE Rx#:[id number] Output: Output, Urine Amount 375 / 2945 775 / 775 Other: Number of Unmeasured Voids 1 0 Weight 91 kg Patient Weight 06/03/24 23:59 Weight 91 kg Laboratory Results - last 24 hr 06/02/24 11:16: Sodium 141, Potassium 3.7, Chloride 94 L, Carbon Dioxide 38 H, Anion Gap 12.7, BUN 32 H, Creatinine 1.00, Estimated Creat Clear 94, Estimated GFR 75, Est GFR ( Amer) 90, Glucose 91 D, Calcium 8.8 06/03/24 05:40: WBC 13.9 H, RBC 5.76, Hgb 16.4, Hct 52.0, MCV 90.3, MCH 28.5, MCHC 31.6 L, RDW 14.9, Plt Count 204, MPV 8.6, Neut % (Auto) 81.0 H, Lymph % (Auto) 11.1, [place] % (Auto) 7.7, Eos % (Auto) 0.1, Baso % (Auto) 0.2, Neut # (Auto) 11.3 H, Lymph # (Auto) 1.5, [place] # (Auto) 1.1 H, Eos # (Auto) 0.0, Baso # (Auto) 0.0, Sodium 140, Potassium 3.4 L, Chloride 96 L, Carbon Dioxide 39 H, Anion Gap 8.4, BUN 34 H, Creatinine 1.00, Estimated Creat Clear 94, Estimated GFR 75, Est GFR ( Amer) 90, Glucose 74, Calcium 8.3 L, Magnesium 2.2, Total Bilirubin 0.8, AST 40 D, ALT 49, Alkaline Phosphatase 52, Total Protein 5.2 L, Albumin 2.8 L D, Globulin 2.4, Albumin/Globulin Ratio 1.2 I & O for Labs for Last 24 Hours: Intake & Output 05/31/24 06/01/24 06/02/24 06/03/24 23:59 23:59 23:59 23:59 Intake Total 944.934 / 944.934 548.75 / 548.75 360 / 840 940 / 940 Output Total 2125 / 2125 3700 / 4350 2945 / 2945 775 / 775 Balance -1180.066 / -1180.066 -3151.25 / -3801.25 -2585 / -2105 165 / 165 Weight 108.097 kg 108.097 kg 91 kg 91 kg Microbiology Reports for the Last 24 Hours: Microbiology 05/31/24 12:36 Blood Blood Culture - Preliminary 05/31/24 11:27 Blood Blood Culture - Preliminary NO GROWTH AFTER 48 HOURS 05/31/24 19:50 Sputum - Expectorated Sputum Gram Stain - Final 05/31/24 19:50 Sputum - Expectorated Sputum Sputum Culture - Preliminary The patient's infection will respond to the chosen ABx?: Yes Is the patient receiving the right drug, dose, and route?: Yes Could a more targeted ABx be ordered?: No (BLOOD AND SPUTUM CX PENDING)
[2024-06-03] MEDS: SPIRONOLACTONE 25MG TABLET 25 MG PO (09:43)
[2024-06-03] MEDS: EMPAGLIFLOZIN 10MG TABLET 10 MG PO (09:43)
[2024-06-03] MEDS: SACUBITRIL/VALSARTAN 24-26MG TABLET 1 EACH PO (09:43)
[2024-06-03] MEDS: APIXABAN 5MG TABLET 5 MG PO (09:43)
[2024-06-03] MEDS: ASPIRIN EC 81MG TABLET 81 MG PO (09:43)
[2024-06-03] MEDS: CARVEDILOL 6.25MG TABLET 6.25 MG PO (09:43)
[2024-06-03] MEDS: predniSONE 20MG TAB 40 MG PO (09:44)
[2024-06-03] MEDS: FUROSEMIDE 100MG/10ML VIAL 80 MG IV (09:44)
--- NOTE | 2024-06-03 09:57 | P.PN_ITS ---
Subjective Subjective Date: 06/03/24 Time: 09:57 Principal diagnosis: HFrEF, A. fib Interval history: 64-year-old white male in bedside chair in no acute distress. Telemetry shows atrial fibrillation at a rate of about 100 bpm Lower extremity edema continues to improve but is still present He has diuresed about 7 L more than he is taken in during this admission Exam Data for Last 24 hours Vital signs and Labs for Last 24 Hours: Temp Pulse Resp BP Pulse Ox O2 Del Method O2 Flow Rate 97.9 F 95 H 22 104/69 L 91 L Nasal Cannula 3 06/03/24 07:37 06/03/24 07:37 06/03/24 07:37 06/03/24 07:37 06/03/24 07:37 06/03/24 07:37 06/03/24 07:37 FiO2 40 06/01/24 06:17 Laboratory Results - last 24 hr 06/02/24 11:16: Sodium 141, Potassium 3.7, Chloride 94 L, Carbon Dioxide 38 H, Anion Gap 12.7, BUN 32 H, Creatinine 1.00, Estimated Creat Clear 94, Estimated GFR 75, Est GFR ( Amer) 90, Glucose 91 D, Calcium 8.8 06/03/24 05:40: WBC 13.9 H, RBC 5.76, Hgb 16.4, Hct 52.0, MCV 90.3, MCH 28.5, MCHC 31.6 L, RDW 14.9, Plt Count 204, MPV 8.6, Neut % (Auto) 81.0 H, Lymph % (Auto) 11.1, [place] % (Auto) 7.7, Eos % (Auto) 0.1, Baso % (Auto) 0.2, Neut # (Auto) 11.3 H, Lymph # (Auto) 1.5, [place] # (Auto) 1.1 H, Eos # (Auto) 0.0, Baso # (Auto) 0.0, Sodium 140, Potassium 3.4 L, Chloride 96 L, Carbon Dioxide 39 H, Anion Gap 8.4, BUN 34 H, Creatinine 1.00, Estimated Creat Clear 94, Estimated GFR 75, Est GFR ( Amer) 90, Glucose 74, Calcium 8.3 L, Magnesium 2.2, Total Bilirubin 0.8, AST 40 D, ALT 49, Alkaline Phosphatase 52, Total Protein 5.2 L, Albumin 2.8 L D, Globulin 2.4, Albumin/Globulin Ratio 1.2 I & O for Last 24 hours: Intake & Output 05/31/24 06/01/24 06/02/24 06/03/24 11:59 11:59 11:59 11:59 Intake Total 953.684 / 953.684 540 / 540 1300 / 1300 Output Total 4325 / 4325 3350 / 3350 2070 / 2070 Balance -3371.316 / -3371.316 -2810 / -2810 -770 / -770 Weight 234 lb 238 lb 5.009 oz 200 lb 9.93 oz 200 lb 9.93 oz Microbiology Reports for the Last 24 Hours: Microbiology 05/31/24 19:50 Sputum - Expectorated Sputum Gram Stain - Final 05/31/24 19:50 Sputum - Expectorated Sputum Sputum Culture - Preliminary 05/31/24 12:36 Blood Blood Culture - Preliminary 05/31/24 11:27 Blood Blood Culture - Preliminary NO GROWTH AFTER 48 HOURS Constitutional Constitutional: no acute distress *Routine Respiratory Exam Respiratory: Present CTA bilaterally *Routine Cardiovascular Exam Cardiovascular: Present irregularly irregular *Routine Extremities Exam Extremities: Present edema Progress Note: A&P Assessment and plan (1) Atrial fibrillation with RVR: Status: Acute (2) Acute hypoxemic respiratory failure: Status: Acute (3) Atrial fibrillation, new onset: Status: Acute (4) New onset of congestive heart failure: Status: Acute (5) COPD exacerbation: Status: Acute (6) Acute respiratory failure with hypoxia and hypercapnia: Status: Acute (7) HFrEF (heart failure with reduced ejection fraction): Status: Acute (8) Leg edema: Status: Acute (9) Elevated troponin: Status: Acute Assessment and Plan Assessment and Plan for All Diagnoses:: 1. A. fib with RVR, new diagnosis -CHADS-VASC score of 3 (CHF, age, vascular disease) -started eliquis 5 mg BID -started coreg for rate control and cardiomyopathy 2. HFrEF with BNP 15256 and transaminitis -Echo EF 25% -continue IV lasix -GDMT with coreg, entresto, spironolactone and jardiance 3. Emphysema with continued tobacco use -RLL pneumonia on CXR, started on Azithromycin, ceftriaxone and prednisone -Hypoxia, improved on nasal oxygen 4. Elevated INR 1.37 without anticoagulation 5. Transaminitis -resolved -likely due to vascular congestion 6. Dyslipidemia -statin started 7. Mildly Elevated troponins -likely due to strain from CHF but cannot rule out [place] in light of cardiomyopathy -LHC shows moderate CAD of [place] with mild CAD of LAD and RCA, medical therapy -continue ASA 8. LE edema -HOLLY normal -venous doppler negative for DVT LifeVest approved and will be fitted before discharge. Stable from cardiac standpoint for discharge home. Home meds: Aspirin 81 mg daily Atorvastatin 40 mg daily Entresto 24/26 mg twice daily Spironolactone 25 mg twice daily Jardiance 10 mg daily Lasix 40 mg twice daily Carvedilol 6.25 mg twice daily Apixaban 5 mg twice daily Follow-up in our office in 1 week with lab work including BMP and BNP.
[2024-06-03 10:40] LABS: NT Pro Brain Natriuretic Pep. 3190 pg/mL (0-125)
--- NOTE | 2024-06-03 10:45 | EXP.PULM.PN ---
Subjective *Date: 06/03/24 *Time: 10:45 Interval history: No acute respiratory events overnight. Patient admits continued improvement in his respiratory symptoms. Pulmonology Exam Inpatient Vital signs and Labs for Last 24 Hours: Temp Pulse Resp BP Pulse Ox O2 Del Method O2 Flow Rate 97.9 F 95 H 22 104/69 L 91 L Nasal Cannula 3 06/03/24 07:37 06/03/24 07:37 06/03/24 07:37 06/03/24 07:37 06/03/24 07:37 06/03/24 09:00 06/03/24 07:37 FiO2 40 06/01/24 06:17 Laboratory Results - last 24 hr 06/02/24 11:16: Sodium 141, Potassium 3.7, Chloride 94 L, Carbon Dioxide 38 H, Anion Gap 12.7, BUN 32 H, Creatinine 1.00, Estimated Creat Clear 94, Estimated GFR 75, Est GFR ( Amer) 90, Glucose 91 D, Calcium 8.8 06/03/24 05:40: WBC 13.9 H, RBC 5.76, Hgb 16.4, Hct 52.0, MCV 90.3, MCH 28.5, MCHC 31.6 L, RDW 14.9, Plt Count 204, MPV 8.6, Neut % (Auto) 81.0 H, Lymph % (Auto) 11.1, [place] % (Auto) 7.7, Eos % (Auto) 0.1, Baso % (Auto) 0.2, Neut # (Auto) 11.3 H, Lymph # (Auto) 1.5, [place] # (Auto) 1.1 H, Eos # (Auto) 0.0, Baso # (Auto) 0.0, Sodium 140, Potassium 3.4 L, Chloride 96 L, Carbon Dioxide 39 H, Anion Gap 8.4, BUN 34 H, Creatinine 1.00, Estimated Creat Clear 94, Estimated GFR 75, Est GFR ( Amer) 90, Glucose 74, Calcium 8.3 L, Magnesium 2.2, Total Bilirubin 0.8, AST 40 D, ALT 49, Alkaline Phosphatase 52, Total Protein 5.2 L, Albumin 2.8 L D, Globulin 2.4, Albumin/Globulin Ratio 1.2 Temp Pulse Resp BP Pulse Ox O2 Del Method O2 Flow Rate 97.6 F 129 H 22 107/73 L 93 L Nasal Cannula 4 06/01/24 07:39 06/01/24 06:17 06/01/24 06:00 06/01/24 06:00 06/01/24 08:41 06/01/24 08:41 06/01/24 08:41 FiO2 40 06/01/24 06:17 Laboratory Results - last 24 hr 05/31/24 11:27: WBC 12.2 H, RBC 6.06, Hgb 17.2, Hct 54.8 H, MCV 90.4, MCH 28.4, MCHC 31.5 L, RDW 15.0, Plt Count 265, MPV 8.5, Neut % (Auto) 82.0 H, Lymph % (Auto) 10.9, [place] % (Auto) 6.0, Eos % (Auto) 0.5, Baso % (Auto) 0.5, Neut # (Auto) 10.0 H, Lymph # (Auto) 1.3, [place] # (Auto) 0.7, Eos # (Auto) 0.1, Baso # (Auto) 0.1, PT 14.9 H, INR 1.37 H, APTT 25.9, Sodium 141, Potassium 4.3, Chloride 103, Carbon Dioxide 32 H, Anion Gap 10.3, BUN 29 H, Creatinine 1.10, Estimated Creat Clear 99, Estimated GFR 67, Est GFR ( Amer) 81, Glucose 113 H, Calcium 9.3, Total Bilirubin 1.2, AST 88 H, ALT 101 H, Alkaline Phosphatase 70, Troponin I 0.07 H, NT-Pro-B Natriuret Pep 22114 H, Total Protein 7.0, Albumin 3.8, Globulin 3.2, Albumin/Globulin Ratio 1.2, Procalcitonin 0.121, HIV 1&2 Antibody Rapid Nonreactive 05/31/24 11:44: VBG pH 7.35, VBG pCO2 57.1 H, VBG pO2 37.4, VBG HCO3 30.5 H, VBG Total CO2 32.3 H, VBG O2 Saturation 70.9 H, VBG Base Excess 4.9 H, VBG Lactic Acid 2.3 H 05/31/24 15:08: Troponin I 0.06 H 05/31/24 16:06: Lactate 1.1 05/31/24 18:15: Troponin I 0.06 H 06/01/24 05:19: WBC 15.8 H D, RBC 5.64, Hgb 16.2, Hct 50.4, MCV 89.4, MCH 28.8, MCHC 32.2, RDW 15.1, Plt Count 237, MPV 8.5, Neut % (Auto) 88.2 H, Lymph % (Auto) 5.2 L, [place] % (Auto) 6.5, Eos % (Auto) 0.0 L, Baso % (Auto) 0.2, Neut # (Auto) 13.9 H, Lymph # (Auto) 0.8, [place] # (Auto) 1.0, Eos # (Auto) 0.0, Baso # (Auto) 0.0, Total Counted 100, Neutrophils % (Manual) 87 H, Lymphocytes % (Manual) 10, Monocytes % (Manual) 3, Platelet Estimate Normal, RBC Morphology Normal, Sodium 137, Potassium 3.8, Chloride 99, Carbon Dioxide 38 H, Anion Gap 3.8 L, BUN 31 H, Creatinine 1.20, Estimated Creat Clear 93, Estimated GFR 61, Est GFR ( Amer) 73, Glucose 80 D, Hemoglobin A1c 5.4, Calcium 8.9, Magnesium 2.3, Total Bilirubin 1.0, AST 59 D, ALT 79 H, Alkaline Phosphatase 63, Total Protein 6.2 L, Albumin 3.5, Globulin 2.7, Albumin/Globulin Ratio 1.3 I & O for Labs for Last 24 Hours: Intake & Output 05/31/24 06/01/24 06/02/24 06/03/24 23:59 23:59 23:59 23:59 Intake Total 944.934 / 944.934 548.75 / 548.75 360 / 840 940 / 940 Output Total 2125 / 2125 3700 / 4350 2945 / 2945 1160 / 1160 Balance -1180.066 / -1180.066 -3151.25 / -3801.25 -2585 / -2105 -220 / -220 Weight 238 lb 5 oz 238 lb 5.009 oz 200 lb 9.93 oz 200 lb 9.93 oz Intake & Output 05/29/24 05/30/24 05/31/24 06/01/24 23:59 22:59 23:59 23:59 Intake Total 944.934 / 944.934 8.75 / 8.75 Output Total 2125 / 2125 0 / 0 Balance -1180.066 / -1180.066 8.75 / 8.75 Weight 238 lb 5 oz 238 lb 5.009 oz Microbiology Reports for the Last 24 Hours: Microbiology 05/31/24 19:50 Sputum - Expectorated Sputum Gram Stain - Final 05/31/24 19:50 Sputum - Expectorated Sputum Sputum Culture - Preliminary 05/31/24 12:36 Blood Blood Culture - Preliminary 05/31/24 11:27 Blood Blood Culture - Preliminary NO GROWTH AFTER 48 HOURS Microbiology 05/31/24 19:50 Sputum - Expectorated Sputum Gram Stain - Preliminary Constitutional: Present moderate distress Head: Present normocephalic and atraumatic ENT: Present normal exam, normal oropharynx and mucous membranes moist Neck: Present normal inspection and full ROM Respiratory: Present prolonged expiratory phase, respiratory distress and able to speak in complete sentences; Absent wheezes Cardiac: Present S1/S2, Tachycardia and radial pulses present GI: Present soft and distention; Absent tenderness or guarding Skin: Present intact; Absent cyanosis or jaundice Neuro: Present alert, awake and oriented x 3 Extremities: Present normal inspection; Absent clubbing or cyanosis Psychiatric: Present normal affect and cooperative Assessment and Plan *Assessment and plan (1) COPD exacerbation: Status: Acute Category: Medical Code(s): J44.1 - Chronic obstructive pulmonary disease with (acute) exacerbation (2) Acute respiratory failure with hypoxia and hypercapnia: Status: Acute Category: Medical Code(s): J96.01 - Acute respiratory failure with hypoxia; J96.02 - Acute respiratory failure with hypercapnia Plan Mr. Hodge is a 64-year-old male with reported history of tobacco abuse COPD presented to ER with worsening respiratory distress and pulmonary was called for further evaluation and management. Upon further questioning he is a current smoker, greater than [id number] smoking history but not using any inhalers or nebulizer therapies at baseline. Progressively worsening respiratory failure worsening cough productive phlegm and wheezing. CTA upon admission, no evidence of pulmonary embolism but upper lobe predominant diffuse centrilobular emphysematous changes. No dense consolidative/airspace changes noted. Neutrophilic predominant leukocytosis. Afebrile. Hemodynamically stable. Venous blood gas upon admission mild hypercarbic respiratory failure. Currently being managed for COPD exacerbation with nebulization therapies and steroids. Blood and sputum cultures pending. On initial examination patient appeared to be in moderate respiratory distress. No wheezing noted condition immediately after receiving nebulization therapies. On 4 L nasal cannula saturating 98%. Patient also being managed for CHF exacerbation and A-fib RVR. Interval update: No acute respiratory vents overnight. Stable oxygen requirements. On 1 to 2 L nasal cannula oxygen supplementation. Plan: Trelegy 100 inhaler along with DuoNebs 4 times daily as needed Continue oxygen supplementation to maintain O2 saturation goal of 90% and Above. Currently needing 1 to 2 L to maintain O2 saturation goal of 90% and above. Not using oxygen supplementation at baseline. Continue ceftriaxone azithromycin pending sputum culture results. Antibiotics can be weaned to cefdinir to complete a total of 5-day course upon discharge Continue prednisone 40 mg daily to complete a total of 5-day course # Thank you for involving pulmonary in this patient care. Will follow the patient in pulmonary clinic 1 to 2 weeks post discharge.
--- NOTE | 2024-06-03 11:34 | P.DS_ITS ---
General Admission date:: 05/31/24 Discharge date: 06/03/24 HPI HPI HPI: Ky Hodge is a 64-year-old male with a medical history significant for tobacco use disorder, COPD presents with progressive shortness of breath over the last several days. He states he has had this on and off for the past years, but has been worse recently. Denies fever/chills, productive cough (baseline dry cough), nausea/vomiting, abdominal pain, constipation/diarrhea. No recent changes in medications. He states he does not use any inhalers for his COPD. He has been smoking apparently since grade 4. On arrival, patient was saturating at 87 on room air. He had diminished air movements and was given 3 DuoNebs and IV Lasix 60 mg, and developed A-fib RVR with heart rate up to 140s. Administered IV Lopressor 5 mg without improvement. Workup in the ED significant for WBC 12.2, VBG with compensated chronic CO2 retention, troponin 0.06, proBNP 15,200. EKG showed A-fib RVR. CXR suggestive of right lower lobe pneumonia. Case discussed with ED provider and decision was made to admit patient for acute hypoxic respiratory failure 2/2 COPD exacerbation, new onset heart failure, and A-fib RVR. 06/01/24: Podiatry consult for a non-Diabetic new patient, admitted for acute hypoxic respiratory failure 2/2 COPD exacerbation, new onset heart failure, and A-fib RVR. Pateint was awake resting in his chair with oxygen mask in place. Alert and oriented x3, pleasant, no acute pain or discomfort this morning. Patient denies pain in his feet just stated his nails were long and ugly, he as verbally agreed for me to assess his feet and trim his nails. Hospital Course Hospital Course Hospital Course: Ky Hodge is a 64-year-old male with a medical history significant for tobacco use disorder, COPD presents with progressive shortness of breath over the last several days. He states he has had this on and off for the past years, but has been worse recently. Denies fever/chills, productive cough (baseline dry cough), nausea/vomiting, abdominal pain, constipation/diarrhea. No recent changes in medications. He states he does not use any inhalers for his COPD. He has been smoking apparently since grade 4. On arrival, patient was saturating at 87 on room air. He had diminished air movements and was given 3 DuoNebs and IV Lasix 60 mg, and developed A-fib RVR with heart rate up to 140s. Administered IV Lopressor 5 mg without improvement. Workup in the ED significant for WBC 12.2, VBG with compensated chronic CO2 retention, troponin 0.06, proBNP 15,200. EKG showed A-fib RVR. CXR suggestive of right lower lobe pneumonia. Case discussed with ED provider and decision was made to admit patient for acute hypoxic respiratory failure 2/2 COPD exacerbation, new onset heart failure, and A-fib RVR. Patient is showing gradual improvement during admission with aggressive diuresis. Was taken for left heart cath on 06/02. Showed moderate CAD of left main and mild CAD of LAD and RCA. Recommend medical management with no interventions at this time. Given improvement, stable to discharge home with plan for close follow-up with cardiology. Pulmonology involved with close follow-up scheduled. Problems addressed as follows: #Acute hypoxic respiratory failure ? Combination of COPD exacerbation, community-acquired pneumonia. See separate problems. #A-fib with RVR #New onset systolic heart failure exacerbation #Pulmonary edema #Elevated troponins ? A-fib, HFrEF new diagnoses. In the setting of community-acquired pneumonia, new heart failure. Initial gated on goal-directed therapy for heart failure and A-fib with improvement in blood pressure and heart rate. Continue aspirin 81 mg daily, Entresto 24/ daily, carvedilol 6.25 mg twice daily, Eliquis 5 mg twice daily, spironolactone 25 mg twice daily, Jardiance 10 mg daily, and Lasix 40 mg twice daily. Left heart cath performed 06/02/2024 with mild CAD. Will need LifeVest due to severe reduction in ejection fraction of 25% on echo. Severe elevation in BNP at 15,000 on admission, improved to 3000 by day of discharge. Responding well to diuresis. Over 7 L negative during admission. Kidney function remained stable. BUN 34, creatinine 1.0 on day of discharge. [id number] score of 3. #Acute COPD exacerbation #Community-acquired pneumonia #Sepsis ?White count bumped to 17, improved to 13.9 by day of discharge. Suspect secondary to steroids versus infection. Showing improvement with treatment. Pulmonology consulted to establish care for COPD. Treated with Xopenex and ipratropium every 6 hours during admission along with budesonide twice daily. Continue Trelegy 100 inhaler. Wean oxygen as tolerated, goal sats greater 90%. Treated with ceftriaxone and azithromycin during admission. Weaned to cefdinir at day of discharge to complete 5 days total and continue prednisone for total of 5 days. #Severe onychomycosis: Podiatry consulted, nails trimmed during admission. Dyslipidemia: Initiated on Lipitor 40 mg daily On day of discharge, patient's oxygen saturation 87% at rest on room air. Necessitating 3 L continuous supplemental oxygen LifeVest approved and will be fitted before discharge. Total time spent on discharge 36 minutes in counseling, documentation, chart review, and direct care with patient. Exam Data for Last 24 hours Vital signs and Labs for Last 24 Hours: Temp Pulse Resp BP Pulse Ox O2 Del Method O2 Flow Rate 97.9 F 95 H 22 104/69 L 91 L Nasal Cannula 3 06/03/24 07:37 06/03/24 07:37 06/03/24 07:37 06/03/24 07:37 06/03/24 07:37 06/03/24 09:00 06/03/24 07:37 FiO2 40 06/01/24 06:17 Laboratory Results - last 24 hr 06/02/24 11:16: Sodium 141, Potassium 3.7, Chloride 94 L, Carbon Dioxide 38 H, Anion Gap 12.7, BUN 32 H, Creatinine 1.00, Estimated Creat Clear 94, Estimated GFR 75, Est GFR ( Amer) 90, Glucose 91 D, Calcium 8.8 06/03/24 05:40: WBC 13.9 H, RBC 5.76, Hgb 16.4, Hct 52.0, MCV 90.3, MCH 28.5, MCHC 31.6 L, RDW 14.9, Plt Count 204, MPV 8.6, Neut % (Auto) 81.0 H, Lymph % (A uto) 11.1, Charlotte % (Auto) 7.7, Eos % (Auto) 0.1, Baso % (Auto) 0.2, Neut # (Auto) 11.3 H, Lymph # (Auto) 1.5, Charlotte # (Auto) 1.1 H, Eos # (Auto) 0.0, Baso # (Auto) 0.0, Sodium 140, Potassium 3.4 L, Chloride 96 L, Carbon Dioxide 39 H, Anion Gap 8.4, BUN 34 H, Creatinine 1.00, Estimated Creat Clear 94, Estimated GFR 75, Est GFR ( Amer) 90, Glucose 74, Calcium 8.3 L, Magnesium 2.2, Total Bilirubin 0.8, AST 40 D, ALT 49, Alkaline Phosphatase 52, NT-Pro-B Natriuret Pep 3190 H, Total Protein 5.2 L, Albumin 2.8 L D, Globulin 2.4, Albumin/Globulin Ratio 1.2 I & O for Last 24 hours: Intake & Output 05/31/24 06/01/24 06/02/24 06/03/24 23:59 23:59 23:59 23:59 Intake Total 944.934 / 944.934 548.75 / 548.75 360 / 840 940 / 940 Output Total 2125 / 2125 3700 / 4350 2945 / 2945 1160 / 1160 Balance -1180.066 / -1180.066 -3151.25 / -3801.25 -2585 / -2105 -220 / -220 Weight 108.097 kg 108.097 kg 91 kg 91 kg Microbiology Reports for the Last 24 Hours: Microbiology 05/31/24 19:50 Sputum - Expectorated Sputum Gram Stain - Final 05/31/24 19:50 Sputum - Expectorated Sputum Sputum Culture - Preliminary 05/31/24 12:36 Blood Blood Culture - Preliminary 05/31/24 11:27 Blood Blood Culture - Preliminary NO GROWTH AFTER 48 HOURS Constitutional Constitutional: no acute distress, average body habitus, chronically ill appearing and cooperative *Routine HEENT Exam Head: Present normocephalic Eye: Present EOMI and PERRL ENT: Present mucous membranes moist *Routine Neck Exam Neck: Present supple; Absent lymphadenopathy *Routine Respiratory Exam Respiratory: Present prolonged expiratory phase; Absent rhonchi, wheezes or crackles *Routine Cardiovascular Exam Cardiovascular: Present irregularly irregular *Routine Abdominal Exam Abdominal: Present soft and normoactive bowel sounds; Absent tenderness *Routine Rectal Exam Patient deferred: visual exam *Routine Exam Patient deferred: penile exam *Routine Extremities Exam Extremities: Present edema (2+ to knees); Absent cyanosis or clubbing *Routine Skin Exam Skin: Present intact and warm; Absent rash *Routine Neurological Exam Neurological: Present alert, oriented X3 and moving all extremities; Absent altered mental status Results Data Completed and Pending Labs on day of discharge: Labs from last 24 hours 06/03/24 06/02/24 05:40 11:16 WBC 13.9 H RBC 5.76 Hgb 16.4 Hct 52.0 MCV 90.3 MCH 28.5 MCHC 31.6 L RDW 14.9 Plt Count 204 MPV 8.6 Neut % (Auto) 81.0 H Lymph % (Auto) 11.1 Charlotte % (Auto) 7.7 Eos % (Auto) 0.1 Baso % (Auto) 0.2 Neut # (Auto) 11.3 H Lymph # (Auto) 1.5 Charlotte # (Auto) 1.1 H Eos # (Auto) 0.0 Baso # (Auto) 0.0 Sodium 140 141 Potassium 3.4 L 3.7 Chloride 96 L 94 L Carbon Dioxide 39 H 38 H Anion Gap 8.4 12.7 BUN 34 H 32 H Creatinine 1.00 1.00 Estimated Creat Clear 94 94 Estimated GFR 75 75 Est GFR ( Amer) 90 90 Glucose 74 91 D Calcium 8.3 L 8.8 Magnesium 2.2 Total Bilirubin 0.8 AST 40 D ALT 49 Alkaline Phosphatase 52 NT-Pro-B Natriuret Pep 3190 H Total Protein 5.2 L Albumin 2.8 L D Globulin 2.4 Albumin/Globulin Ratio 1.2 Preliminary micro results at discharge 05/31/24 19:50 Sputum Culture - Preliminary Sputum - Expectorated Sputum 05/31/24 12:36 Blood Culture - Preliminary Blood 05/31/24 11:27 Blood Culture - Preliminary Blood NO GROWTH AFTER 48 HOURS DS: Diagnosis Discharge Diagnosis (1) COPD exacerbation: Status: Acute Code(s): J44.1 - Chronic obstructive pulmonary disease with (acute) exacerbation (2) Acute respiratory failure with hypoxia and hypercapnia: Status: Acute Code(s): J96.01 - Acute respiratory failure with hypoxia; J96.02 - Acute respiratory failure with hypercapnia Meds Home Medications and Allergies Home Medications ?Medication ?Instructions ?Recorded ?Confirmed ?Type apixaban 5 mg tablet (Eliquis) 5 mg PO BID 30 days #60 tabs 06/03/24 Rx aspirin 81 mg tablet,delayed 81 mg PO DAILY 30 days #30 tabs 06/03/24 Rx release atorvastatin 40 mg tablet 40 mg PO HS 30 days #30 tabs 06/03/24 Rx azithromycin 250 mg tablet 500 mg (2 x 250 mg) PO DAILY 1 day 06/03/24 Rx #2 tabs carvedilol 6.25 mg tablet 6.25 mg PO BID 30 days #60 tabs 06/03/24 Rx cefdinir 300 mg capsule 300 mg PO BID 1 day #2 caps 06/03/24 Rx empagliflozin 10 mg tablet 10 mg PO DAILY 30 days #30 tabs 06/03/24 Rx (Jardiance) fluticasone fur. 100 mcg-umeclid 1 inh inhalation DAILY 30 days #60 06/03/24 Rx 62.5 mcg-vilant 25 mcg ea inhalat.powder (Trelegy Ellipta) furosemide 40 mg tablet (Lasix) 40 mg PO BID #60 tabs 06/03/24 Rx sacubitril 24 mg-valsartan 26 mg 1 tab PO BID 30 days #60 tabs 06/03/24 Rx tablet (Entresto) spironolactone 25 mg tablet 25 mg PO BID 30 days #60 tabs 06/03/24 Rx New Prescriptions to Start Prescriptions: apixaban [Eliquis] Tristan,Miguelangel aspirin Tristan,Miguelangel atorvastatin Tristan,Miguelangel azithromycin Miguelangel Hudson carvedilol Miguelangel Hudson cefdinir Miguelangel Hudson empagliflozin [Jardiance] Miguelangel Hudson [id number] [Trelegy Ellipta] Miguelangel Hudson furosemide [Lasix] Miguelangel Hudson sacubitril-valsartan [Entresto] Miguelangel Hudosn spironolactone Miguelangel Hudson Allergies Allergy/AdvReac Type Severity Reaction Status Date / Time No Known Allergies Allergy Unverified 05/31/24 12:35 Discharge Plan Disposition Patient Disposition: Home Health Service Condition: Fair Discharge Order Discharge Orders: Discharge Order (Routine); Ordered 06/03/24 Ordered By: Miguelangel Hudson Follow up Plan Follow up with: Aparna Cardenas MD [Physician] - 06/17/24 1:00 pm Luigi Armstrong MD [Staff Physician] - 06/10/24 2:00 pm Prescriptions/Medication Reconciliation: New atorvastatin 40 mg Tablet 40 mg PO HS 30 Days Qty: 30 0RF carvedilol 6.25 mg Tablet 6.25 mg PO BID 30 Days Qty: 60 0RF aspirin 81 mg Tablet,Delayed Release (Dr/Ec) 81 mg PO DAILY 30 Days Qty: 30 0RF Eliquis 5 mg Tablet 5 mg PO BID 30 Days Qty: 60 0RF Jardiance 10 mg Tablet 10 mg PO DAILY 30 Days Qty: 30 0RF Trelegy Ellipta 100-62.5-25 mcg Blister With Device 1 inh inhalation DAILY 30 Days Qty: 60 0RF spironolactone 25 mg Tablet 25 mg PO BID 30 Days Qty: 60 0RF Entresto 24-26 mg Tablet 1 tab PO BID 30 Days Qty: 60 0RF furosemide [Lasix] 40 mg tablet 40 mg PO BID Qty: 60 0RF cefdinir 300 mg capsule 300 mg PO BID 1 Days Qty: 2 0RF azithromycin 250 mg Tablet 500 mg PO DAILY 1 Days Qty: 2 0RF Rx Instructions: take 06/04/24 Discontinued aspirin 325 mg Tablet,Delayed Release (Dr/Ec) 325 mg PO DAILY Other Ambulatory Orders: Home Medical Equipment (Routine) Location: None Selected Ordered By: Miguelangel Hudson Problem Reconciliation Problems Reviewed?: Yes Patient Discharge Instructions ACTIVITY: Continue current activity DIET: continue same diet and advance to your usual diet Patient Instructions: Heart-Healthy Diet, DI for Heart Failure, DI for Chronic Obstructive Pulmonary Disease, DI for Cardiac Catheterization, DI for Atrial Fibrillation, DI for Surgical Site Infection Print Language: Croatian Providers Primary Care Provider: Vita Grissom Admit Provider: Librado Grewal Attending Provider: Librado Grewal
[2024-06-03] MEDS: AZITHROMYCIN 250MG TABLET 500 MG PO (11:44)
--- NOTE | 2024-06-04 13:32 | CARE MANAGER ---
Attempted to contact patient related to hospital discharge. No working number for patient. JACOB Mason
== END 2024-06-03 13:47 | disposition home health service (06) | DRG 286 ==
LOC: ER 13:02 → 2ND 13:55
PROVIDERS: Internal Medicine; Physician Assistant; Admitting Provider Student in an Organized Health Care Education/Training Program; Emergency Provider Emergency Medicine; PCP Family Medicine; Visit Provider Student in an Organized Health Care Education/Training Program
PROC: B2111ZZ Fluoroscopy of Multiple Coronary Arteries using Low Osmolar Contrast (ICD-10-PCS; principal; 2024-06-02 08:00)
DX: I50.23 Acute on chronic systolic (congestive) heart failure (principal); A41.9 Sepsis, unspecified organism; J18.9 Pneumonia, unspecified organism; J96.01 Acute respiratory failure with hypoxia; J96.02 Acute respiratory failure with hypercapnia; J44.1 Chronic obstructive pulmonary disease with (acute) exacerbation; J44.0 Chronic obstructive pulmonary disease with (acute) lower respiratory infection; I42.9 Cardiomyopathy, unspecified; I48.91 Unspecified atrial fibrillation; E78.5 Hyperlipidemia, unspecified; I25.10 Atherosclerotic heart disease of native coronary artery without angina pectoris; F17.200 Nicotine dependence, unspecified, uncomplicated; J43.9 Emphysema, unspecified
CPT/HCPCS: 36415; 71045; 80048; 80053; 82803; 83036; 83605; 83735; 83880; 84145; 84484; 85007; 85025; 85610; 85730; 86803; 87040; 87070; 87075; 87186; 87205; 87389; 93005; 93306; 93454; 93923; 93970; 94640; 94761; 99152; 99291; C1725; C1769; J0456; J0696; J1200; J1644; J1650; J1940; J2250; J2919; J3010; J7050; J7614; J7620; J7644; Q9957; Q9967

== ENCOUNTER 2024-08-19 10:43 | Outpatient (CLI) | payer MEDICARE, MEDICAID, SELFPAY ==
--- NOTE | 2024-08-19 10:48 | CA_ITS ---
APPROVED REPORT EXAM: Limited 2D Echocardiogram Warehouse Picker: Deepti Young, RCS, RVS Ht: 5 ft 10 in Wt: 234lbs BSA: 2.23 BP: 116/81 mmHg Indications: Afib, CM, HFrEF, Lifevest 2D Dimensions IVSd 1.28 cm LVEF (Visual) 40.90 % PWd 1.36 cm LVEF (Garrido's) 30.70 % LVDd 5.13 cm LV Volume 150.20 mL LVDs 4.10 cm LV Volume Index 67.155442 mL/m2 M: 34 - 74 EF AP4 23.60 % EF AP2 30.4 % EF BP 30.7 % GL Strain -8.7 % M-Mode Dimensions RVDd 2.91 cm (0.9-2.6) LVDd 5.13 cm (3.5-5.7) LVDs 4.18 cm (3.5-5.7) IVSd 1.21 cm (0.6-1.1) PWd 1.33 cm (0.6-1.1) EF (Teich) 36.40% EPSs 1.45 cm FS 18.43% EDV (Teich) 122.10 mL ESV (Teich) 77.70 mL Tricuspid Valve TR P. Velocity 243.00 cm/s RAP Estimate 10.00 mmHg RVSP 33.60 mmHg Other Information Study Quality: Fair Conclusion This is a limited TTE to evaluate for LV systolic function. Limited windows are obtained. The left ventricle is normal in size. There is increased LV wall thickness. There is moderate to severe global hypokinesis present. LVEF is 30%. Compared to prior study from 05/2024, there is slight improvement in the LVEF, but LV systolic function remains moderately to severely reduced. Electronically signed by : Maryjo Armstrong MD 08/19/2024 11:59:49
== END 2024-08-19 23:59 | disposition home or self-care (01) ==
LOC: RT 10:44
PROVIDERS: PCP Family Medicine; Visit Provider Physician Assistant
DX: I42.8 Other cardiomyopathies (principal); I50.20 Unspecified systolic (congestive) heart failure; Z95.810 Presence of automatic (implantable) cardiac defibrillator
CPT/HCPCS: 93308

== ENCOUNTER 2024-09-14 08:46 | Day surgery (SDC) | payer MEDICARE, MEDICAID, SELFPAY ==
[2024-09-13 14:08] VITALS: BMI 31.5
--- NOTE | 2024-09-14 09:11 | CA_ITS ---
APPROVED REPORT EXAM: Comprehensive 2D, Doppler, and color-flow Echocardiogram Leading Firefighter: Radha Camargo RVT Ht: 5 ft 10 in Wt: 220lbs BSA: 2.17 BP: 116/81 mmHg Indications: A-FIB WITH CARDIOVERSION,CM,LIFEVEST IN PLACE Left Ventricle The left ventricle is normal size. Left ventricular systolic function is moderate to severely decreased. There is increased LV wall thickness. There is moderate to severe global hypokinesis. There are no masses or echodensities visualized in the LV apex. LVEF is 30%. Right Ventricle Right ventricle is moderately dilated. Right ventricle is severely hypokinetic. Atria Left atrium is mildly dilated. No thrombus is visualized in the left atrium or appendage. Right atrium is mildly dilated. Interatrial septum is intact without evidence of ASD or PFO. Aortic Valve The aortic valve is mildly thickened. There is no aortic valvular stenosis. Trace aortic regurgitation. Mitral Valve The mitral valve leaflets are mildly thickened. The posterior MV leaflet is tethered and restricted in motion. No evidence of mitral valve stenosis. Mild mitral regurgitation. The MR jet is eccentric and posteriorly directed. The mechanism of MR is likely functional in the setting of tethering of the posterior MV leaflet (Christiano class IIIB) Tricuspid Valve Tricuspid valve is grossly normal in structure and function. Mild tricuspid regurgitation. RVSP is 18 mmHg plus RA pressure. Pulmonic Valve The pulmonary valve is normal in structure. Trace pulmonic regurgitation. Great Vessels The aortic root is normal in size. The ascending aorta is normal in size. Pericardium There is no pericardial effusion. Other Information Study Quality: Fair Conclusion Moderate to severe reduction in global LV systolic function (LVEF 30%). Moderate RV dilation with severe reduction in RV function. Biatrial dilation. Tethering of the posterior MV leaflet. Mild MR (functional - Christiano class IIIB). Mild TR. No evidence of LA or WAYNE thrombus. No evidence of apical LV thrombus. Once CHUCK demonstrated no evidence of LA, WAYNE, or LV thrombus, the patient underwent 1 successful attempt with DCCV at 150 J, after which his rhythm converted from A-fib/RVR into normal sinus rhythm. Subsequently, he was transferred to postoperative recovery. He was eventually discharged without symptoms and in stable condition. Electronically signed by : Maryjo Armstrong MD 09/15/2024 00:07:47
[2024-09-14] MEDS: LACTATED RINGERS 1000ML 1,000 ML 50 ML IV (09:24)
[2024-09-14 09:33] VITALS: BP 97/67; PULSE 67; RESP 18; TEMP 36.5; O2SAT 92
[2024-09-14 09:38] LABS: POC Glucose,Bedside 85 (70-110)
[2024-09-14 09:40] LABS: Basophils # 0.1 K/mm3 (0-0.2); Basophils % 0.9 % (0.1-2.0); Eosinophils # 0.1 K/mm3 (0.0-0.4); Eosinophils % 0.8 % (0.1-12.0); Hematocrit 57.4 % (42.0-52.0); Lymphocytes # 2.1 K/mm3 (0.7-4.5); Lymphocytes % 21.4 % (10-50); Mean Corpuscular HGB Conc 31.9 g/dL (31.8-35.4); Mean Corpuscular Volume 87.9 fl (80-94); Mean Platelet Volume 10.7 fl (7.4-10.4); Monocytes % 10.2 % (1.7-9.3); Neutrophils # 6.6 K/mm3 (1.8-7.8); Neutrophils % 66.5 % (37.0-80.0); Platelet Count 212 K/mm3 (142-424); Red Blood Count 6.53 M/mm3 (4.60-6.20); Red Cell Distribution Width 18.1 % (11.5-17.5); White Blood Count 9.9 K/mm3 (4.8-10.8)
[2024-09-14 09:55] LABS: Hemoglobin 18.2 g/dL (14.1-18.0)
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
--- NOTE | 2024-09-14 10:07 | ECG_ITS ---
APPROVED REPORT Exam: Resting ECG HR:91 bpm ECG Measurements Heart Rate 91 AXES QRSd 172 QRS 181 QT 412 T 19 QTc 460 Conclusion ATRIAL FIBRILLATION INDETERMINATE AXIS RIGHT BUNDLE BRANCH BLOCK [120+ ms QRS DURATION, UPRIGHT V1, 40+ ms S IN I/aVL/V4/V5/V6] ABNORMAL ECG UNCONFIRMED REPORT Electronically signed by : Arron Lao MD 09/14/2024 16:22:08
[2024-09-14 10:21] LABS: Chloride 102 mmol/L (98-107); Potassium 3.5 mmoL/L (3.5-5.1); Sodium 136 mmol/L (136-145)
[2024-09-14 10:24] LABS: Anion Gap 10.5 mEq/L (5-15); Blood Urea Nitrogen 9 mg/dl (9-20); Calcium 7.8 mg/dl (8.4-10.2); Carbon Dioxide 27 mmol/L (22.0-30.0); Creatinine Clearance Estimated 103 mL/min (50-200); Estimated Glomerular Filt Rate 135 ml/min (>60); GFR (African American) 163 ML/MIN (>60); Glucose 69 mg/dl (74-100)
[2024-09-14] MEDS: APIXABAN 5MG TABLET 5 MG PO (10:33)
[2024-09-14 10:59] LABS: INR 1.18 (0.9-1.1); Prothrombin Time 12.8 seconds (9.2-12.1)
[2024-09-14 11:55] VITALS: BP 112/84; PULSE 87; RESP 18; TEMP 36.1; O2SAT 92
[2024-09-14 12:05] VITALS: BP 96/68; PULSE 84; RESP 18; O2SAT 97
[2024-09-14 12:15] VITALS: BP 97/68; PULSE 83; RESP 18; O2SAT 97
[2024-09-14 12:25] VITALS: BP 103/68; PULSE 82; RESP 18; O2SAT 95
[2024-09-14 12:43] VITALS: O2SAT 96
== END 2024-09-14 12:25 | disposition home or self-care (01) ==
PROVIDERS: PCP Family Medicine; Visit Provider Internal Medicine
DX: I48.91 Unspecified atrial fibrillation (principal); I50.23 Acute on chronic systolic (congestive) heart failure; Z95.810 Presence of automatic (implantable) cardiac defibrillator; Z55.0 Illiteracy and low-level literacy; R60.0 Localized edema; I48.4 Atypical atrial flutter; Z79.899 Other long term (current) drug therapy
CPT/HCPCS: 80048; 82962; 85025; 85610; 92960; 93005; 93270; 93312; 93319; J7120

== ENCOUNTER 2024-10-21 13:44 | Outpatient (CLI) | payer MEDICARE, MEDICAID, SELFPAY ==
[2024-10-21 14:24] LABS: Basophils # 0.1 K/mm3 (0-0.2); Basophils % 0.8 % (0.1-2.0); Eosinophils # 0.1 K/mm3 (0.0-0.4); Eosinophils % 1.4 % (0.1-12.0); Hematocrit 53.6 % (42.0-52.0); Hemoglobin 17.4 g/dL (14.1-18.0); Lymphocytes # 2.7 K/mm3 (0.7-4.5); Lymphocytes % 28.3 % (10-50); Mean Corpuscular HGB Conc 32.5 g/dL (31.8-35.4); Mean Corpuscular Volume 89.5 fl (80-94); Mean Platelet Volume 10.8 fl (7.4-10.4); Monocytes # 0.9 K/mm3 (0.1-1.0); Monocytes % 9.3 % (1.7-9.3); Neutrophils # 5.8 K/mm3 (1.8-7.8); Neutrophils % 60.1 % (37.0-80.0); Platelet Count 190 K/mm3 (142-424); Red Blood Count 5.99 M/mm3 (4.60-6.20); Red Cell Distribution Width 16.7 % (11.5-17.5); White Blood Count 9.6 K/mm3 (4.8-10.8)
[2024-10-21 15:01] LABS: Albumin Level 4.5 g/dl (3.5-5.0); Chloride 102 mmol/L (98-107)
[2024-10-21 15:02] LABS: Potassium 4.4 mmoL/L (3.5-5.1); Sodium 139 mmol/L (136-145)
[2024-10-21 15:04] LABS: Alanine Aminotransferase 24 U/L (12-78); Anion Gap 9.4 mEq/L (5-15); Aspartate Amino Transferase 30 U/L (17-59); Bilirubin,Unconjugated 0.5 mg/dL (0.0-1.1); Blood Urea Nitrogen 18 mg/dl (9-20); Carbon Dioxide 32 mmol/L (22.0-30.0); Estimated Glomerular Filt Rate 75 ml/min (>60); GFR (African American) 90 ML/MIN (>60)
[2024-10-21 15:05] LABS: Alkaline Phosphatase 78 U/L (38-126); Bilirubin,Direct 0.1 mg/dl (0.0-0.4); Bilirubin,Indirect 0.6 mg/dL (0.0-0.9); Bilirubin,Total 0.7 mg/dl (0.2-1.3); Calcium 9.7 mg/dl (8.4-10.2); Chol/HDL Ratio 3.6 (1-3.5); Cholesterol 153 mg/dl (140-200); Glucose 88 mg/dl (74-100); HDL Cholesterol 42 mg/dl (40-60); Total Protein,Serum 7.1 g/dl (6.3-8.2); Triglycerides 86 mg/dl (30-150); VLDL Cholesterol 17 mg/dL (0-40)
[2024-10-21 15:16] LABS: Direct LDL Cholesterol 86.59 mg/dL (100-129)
[2024-10-21 15:22] LABS: Free T4 (Free Thyroxine) 1.59 ng/dl (0.78-2.19)
== END 2024-10-21 23:59 | disposition home or self-care (01) ==
LOC: LAB 13:45
PROVIDERS: PCP Family Medicine; Visit Provider Internal Medicine
DX: I50.23 Acute on chronic systolic (congestive) heart failure (principal); I48.91 Unspecified atrial fibrillation; J96.01 Acute respiratory failure with hypoxia; R60.0 Localized edema
CPT/HCPCS: 36415; 80048; 80061; 80076; 84439; 84443; 85025